=== PATIENT | female | born 2000 | race Caucasian/White ===

== ENCOUNTER 2021-12-15 21:29 | Emergency (ER) | payer OTHER, SELFPAY ==
[2021-12-15] VITALS (7 sets, daily range): BP systolic 102–118; BP diastolic 56–67; PULSE 56–71; RESP 16–22; TEMP 36.2; O2SAT 98–100; BMI 26.6
--- NOTE | 2021-12-15 22:05 | PC.NURSE ---
Upper right sided chest pain and also having pain under right ribs for the past 3-4 hours. Did not try any pain meds or interventions at home.
--- NOTE | 2021-12-15 22:08 | ED.CHESTPAIN ---
HPI - Chest Pain General Chief Complaint: Chest Pain Stated Complaint: rib pain, chest pain no known injury Time Seen by Provider: 12/15/21 21:45 Source: patient Mode of arrival: Ambulatory History of Present Illness HPI narrative: 21-year-old female, does not smoke cigarettes but does use a vape presents with significant other and a chief complaint of right upper quadrant pain with radiation to her right shoulder. She denies any injury nor obvious provocation or palliation. No worsening with food or drink. No history of gallbladder disease. No chest pain, cough or shortness of breath. No recent runny nose, sore throat or cough. She has had no nausea, vomiting or diarrhea Related Data Allergies Allergy/AdvReac Type Severity Reaction Status Date / Time Penicillins Allergy Hives Verified 12/15/21 21:43 Review of Systems Review of Systems Narrative: GENERAL: Denies chills, fatigue, malaise, fever, sweats. HEENT: Denies sinus pain, ear pain, sore throat, difficulty swallowing, dizziness. RESPIRATORY: Denies dyspnea, cough, wheezing, hemoptysis, sputum. CARDIOVASCULAR: Denies chest pain, palpitations, orthopnea, edema, GASTROINTESTINAL: See HPI : Denies dysuria, frequency, incontinence, hematuria, urinary retention. MUSCULOSKELETAL: denies weakness, joint pain, or bony pain SKIN: Denies rash, skin lesions, or other NEUROLOGIC: Denies weakness, headache, numbness, change in speech, confusion, seizures, incoordination. PSYCHIATRIC: No concerning psychosocial issues. 12 point review of systems is negative except for those stated above Patient History tobacco type: vaping Substance Use Type: does not use Exam Narrative Exam Narrative: GENERAL: [21] year old patient appears stated age. Well-developed patient, in mild distress. HEAD: Atraumatic. Normocephalic. EYES: Pupils equal round and reactive. Extraocular motions intact. No scleral icterus. No injection or drainage. ENT: Nose without bleeding, purulent drainage. Throat without erythema, tonsillar hypertrophy or exudate. Airway patent. NECK: Trachea midline. Non tender CARDIOVASCULAR: Regular rate and rhythm without murmurs, gallops, or rubs. RESPIRATORY: Clear to auscultation. Breath sounds equal bilaterally. No wheezes, rales, or rhonchi. GASTROINTESTINAL: Abdomen soft, tender to palpation in the right upper quadrant nondistended. EXTREMITIES: No edema or joint tenderness. BACK: Nontender without deformity or crepitance. No flank tenderness. NEURO: AOx3. SKIN: No rash or erythema of visible areas Initial Vital Signs Initial Vital Signs: Vital Signs Temperature 97.2 F L 12/15/21 21:39 Pulse Rate 61 12/15/21 21:39 Respiratory Rate 16 12/15/21 21:39 Blood Pressure 118/59 L 12/15/21 21:39 Pulse Oximetry 99 12/15/21 21:39 Course Orders Ordered: Discontinued Medications Hydrocodone Bitart/Acetaminophen (Hydrocodone/Acet 5/325 Prepack) 1 bottle MISC SEEINSTR ONE Stop: 12/15/21 23:50 Last Admin: 12/16/21 00:16 Dose: 1 bottle Documented by: ELANA Sodium Chloride (Normal Saline 0.9%) 1,000 mls @ 1,000 mls/hr IV BOLUS ONE Stop: 12/15/21 23:18 Last Infusion: 12/16/21 00:15 Dose: 0 mls/hr Documented by: Admin: 12/15/21 22:28 Dose: 1,000 mls/hr Documented by: ELIU Ondansetron HCl (Ondansetron 4 Mg Odt Prepack) 1 bottle MISC SEEINSTR ONE Stop: 12/15/21 23:50 Last Admin: 12/16/21 00:16 Dose: 1 bottle Documented by: ELANA Vital Signs Vital signs: Vital Signs - 8 hr 12/15/21 23:30 12/16/21 00:00 Pulse Rate 69 81 Respiratory Rate 20 27 H Blood Pressure 107/64 99/64 Pulse Oximetry 99 97 MDM - Chest Pain Lab Data Result diagrams: 12/15/21 22:20 12/15/21 22:20 Labs: Lab Results 12/15/21 12/15/21 Range/Units 22:20 22:20 WBC 8.2 (4.5-11.0) X10^3/uL RBC 4.43 (4.0-5.2) X10^6/uL Hgb 12.9 (12.0-16.0) g/dL Hct 39.7 (36-46) % MCV 89.6 (80-100) fL MCH 29.1 (26-34) PG MCHC 32.5 (30-36) % RDW 13.4 (11.6-14.8) % Plt Count 252 (150-400) X10^3/uL Neut % (Auto) 54.4 (50-75) % Lymph % (Auto) 35.9 (25-40) % [place] % (Auto) 8.1 (3-14) % Eos % (Auto) 0.8 L (2-4) % Baso % (Auto) 0.8 (0-2) % Neut # (Auto) 4400 (5497-8989) /uL Lymph # (Auto) 2900 (2387-9161) /uL [place] # (Auto) 700 (0-900) /uL Eos # (Auto) 100 (0-450) /uL Baso # (Auto) 100 (0-100) /uL Sodium 140 (137-145) mmol/L Potassium 3.4 (3.4-5.1) mmol/L Chloride 106 (98-107) mmol/L Carbon Dioxide 28 (22-32) mmol/L BUN 13 (7-17) mg/dL Creatinine 0.83 (0.52-1.04) mg/dL Estimated GFR > 60.0 (>60) mL/min BUN/Creatinine Ratio 15.7 (6-22) Glucose 93 (70-100) mg/dL Calcium 8.9 (8.4-10.2) mg/dL Total Bilirubin 0.5 (0.2-1.3) mg/dL AST 23 (14-36) IU/L ALT 20 (<35) IU/L Alkaline Phosphatase 36 L (38-126) U/L Total Protein 7.7 (6.3-8.2) g/dL Albumin 4.6 (3.5-5.0) g/dL Globulin 3.1 (1.7-4.1) g/dL Albumin/Globulin Ratio 1.5 (1.0-2.8) Lipase 63 (23-300) U/L Point of Care Testing Test Results Negative Urine Dip Bedside Urine Glucose Negative Bedside Urine Bilirubin - Negative Bedside Urine Ketone - Negative Urine Specific [place] 1.020 Bedside Urine Occult Blood - Negative Bedside Urine pH 6.0 Bedside Urine Protein - Negative Bedside Urine Urobilinogen - Negative Bedside Urine Nitrite - Negative Bedside Urine Leukocytes - Negative Esterase Imaging Data US - abdomen: Radiologist's Impression: [address] [address] Ultrasound Report Signed Patient: Hannah Francis MR#: [id number] : 2000 Acct:[id number] Age/Sex: 21 / F Date of Service: 12/15/21 Loc: ED Accession Number: [id number] ?? Procedure: US abdomen limited Ordering Provider: Nayan Cardoso D.O. PROCEDURE: US ABDOMEN LIMITED ? INDICATIONS:? RUQ pain, radiation to back, Fairbanks's ? TECHNIQUE:? Real-time focused scanning was performed of the abdomen, with image documentation.? ? COMPARISON:? None. ? FINDINGS: Liver is normal in size and echogenicity. No intrahepatic or extrahepatic biliary ductal dilatation.? The visualized portions of the pancreas are within normal limits. ? The gallbladder appears normal without gallstones or gallbladder wall thickening.? There is no pericholecystic fluid.? Legal Executive notes a positive sonographic [place]banks sign. ? IMPRESSION:? No acute abnormality identified in the right upper quadrant.? Normal gallbladder.? However, the press operator instant print shop notes a positive sonographic [place] sign.? Findings are of uncertain clinical significance and clinical correlation is recommended.? ? ? Dictated by: William Monroy M.D. on 12/16/2021 at 0:05 ? ? Approved by: William Monroy M.D. on 12/16/2021 at 0:07? MDM Narrative Medical decision making narrative: Multiple etiologies for patient's symptoms considered including: [Gallbladder disease given right upper quadrant pain with palpation in radiation of right shoulder but thought unlikely given lack of abnormal lab findings or ultrasound. Musculoskeletal considerations include spasm, inflammation but thought unlikely. Patient's symptoms improved over duration of stay with above-stated therapies. Findings and discharge diagnosis discussed with patient/family followed by verbalization of understanding Return precautions discussed with patient/family whom verbalize understanding. Discharge Plan Departure Patient Disposition: Home Clinical Impression: Right upper quadrant abdominal pain Instructions: DI for Abdominal Pain-Adult Activity Restrictions/Additional Instructions: *You have been diagnosed with [right upper quadrant pain, likely from gallbladder disease. As we discussed, your labs and ultrasound are very reassuring and there is no suggestion that you have a problem with your gallbladder that would need emergency surgery. *What to do: *Please continue to take your regular medications as directed. [ ] New medication prescriptions sent to your pharmacy: [ ] [ ] New medication written as a paper prescription [x ] No new medications given *Please follow up with your primary care provider or Dr. Clinton with [facility] in 2-3 days, call for an appointment. Let them know you were seen in the Emergency Department and that we ask that you be seen in follow up. We will electronically transmit a record of today's note if your PCP is in our system *Please avoid fatty foods. *If you do not have a primary care provider please contact the [facility] Resource line at [phone]. They will ask some questions about your medical history and help get you set up with a doctor in the community. *Return to Emergency Department if you should have any new, worsening or concerning symptoms, such as [fever greater than 101 F, shaking chills, worsening pain, persistent vomiting or other bothersome symptoms] Referrals: Pavan Clinton MD [Physician] - Stand Alone Forms: Work Release Note
--- NOTE | 2021-12-15 22:19 | DI.US.S_ITS ---
PROCEDURE: US ABDOMEN LIMITED INDICATIONS: RUQ pain, radiation to back, Fairbanks's TECHNIQUE: Real-time focused scanning was performed of the abdomen, with image documentation. COMPARISON: None. FINDINGS: Liver is normal in size and echogenicity. No intrahepatic or extrahepatic biliary ductal dilatation. The visualized portions of the pancreas are within normal limits. The gallbladder appears normal without gallstones or gallbladder wall thickening. There is no pericholecystic fluid. Merchandiser Retail Representative notes a positive sonographic Fairbanks sign. IMPRESSION: No acute abnormality identified in the right upper quadrant. Normal gallbladder. However, the coil former notes a positive sonographic Fairbanks sign. Findings are of uncertain clinical significance and clinical correlation is recommended. Dictated by: William Monroy M.D. on 12/16/2021 at 0:05 Approved by: William Monroy M.D. on 12/16/2021 at 0:07
[2021-12-15] MEDS: SODIUM CHLORIDE 0.9% 1,000 ML 1000 ML IV (22:28)
[2021-12-15 22:33] LABS: Add Manual Diff / Slide Review NO; Basophils Absolute Auto 100 /uL (0-100); Basophils Percent Auto 0.8 % (0-2); Eosinophils Absolute Auto 100 /uL (0-450); Eosinophils Percent Auto 0.8 % (2-4); Hematocrit 39.7 % (36-46); Hemoglobin 12.9 g/dL (12.0-16.0); Lymphocytes Absolute Auto 2900 /uL (1100-4500); Lymphocytes Percent Auto 35.9 % (25-40); Mean Corpuscular HGB Conc 32.5 % (30-36); Mean Corpuscular Hemoglobin 29.1 PG (26-34); Mean Corpuscular Volume 89.6 fL (80-100); Monocytes Absolute Auto 700 /uL (0-900); Monocytes Percent Auto 8.1 % (3-14); Neutrophils Absolute Auto 4400 /uL (1500-7000); Neutrophils Percent Auto 54.4 % (50-75); Platelet Count 252 X10^3/uL (150-400); Red Blood Cell Count 4.43 X10^6/uL (4.0-5.2); Red Cell Distribution Width 13.4 % (11.6-14.8); White Blood Cell Count 8.2 X10^3/uL (4.5-11.0)
[2021-12-15 22:39] LABS: Alanine Aminotransferase 20 IU/L (<35); Albumin 4.6 g/dL (3.5-5.0); Albumin Globulin Ratio 1.5 (1.0-2.8); Alkaline Phosphatase 36 U/L (38-126); Aspartate Aminotransferase 23 IU/L (14-36); BUN Creatinine Ratio 15.7 (6-22); Bilirubin Total 0.5 mg/dL (0.2-1.3); Blood Urea Nitrogen 13 mg/dL (7-17); Calcium 8.9 mg/dL (8.4-10.2); Carbon Dioxide 28 mmol/L (22-32); Chloride 106 mmol/L (98-107); Estimated Glomerular Filt Rate > 60.0 mL/min (>60); Globulin 3.1 g/dL (1.7-4.1); Glucose 93 mg/dL (70-100); HEMOLYSIS < 15 (0-50); Lipase 63 U/L (23-300); Potassium 3.4 mmol/L (3.4-5.1); Sodium 140 mmol/L (137-145); Total Protein 7.7 g/dL (6.3-8.2)
[2021-12-16] VITALS: BP 99/64; PULSE 81; RESP 27; O2SAT 97
[2021-12-16] MEDS: ONDANSETRON 4 MG ODT PREPACK 1 BOTTLE MISC (00:16)
[2021-12-16] MEDS: HYDROCODONE/ACET 5/325 PREPACK 1 BOTTLE MISC (00:16)
== END 2021-12-16 00:22 | disposition home or self-care (01) ==
PROVIDERS: Emergency Provider Emergency Medicine
DX: R10.11 Right upper quadrant pain (principal); F17.290 Nicotine dependence, other tobacco product, uncomplicated
CPT/HCPCS: 36415; 76705; 80053; 81003; 81025; 83690; 85025; 96360; 96361; 99284

== ENCOUNTER 2021-12-19 18:31 | Emergency (ER) | payer OTHER, SELFPAY ==
[2021-12-19 19:09] VITALS: BP 119/57; PULSE 74; RESP 16; TEMP 36.6; O2SAT 98; BMI 26.6
--- NOTE | 2021-12-19 20:48 | ED_ITS ---
HPI - Recheck/Abnormal Lab/Rx General Chief Complaint: Recheck/Abnormal Lab/Rx Stated Complaint: here on monday, increasing pain, rt shoulder Time Seen by Provider: 12/19/21 20:13 Source: patient Mode of arrival: Ambulatory Limitations: no limitations History of Present Illness HPI narrative: This is a 21-year-old female who returns for change in pain. Patient was seen on Monday she had right upper quadrant pain and some right upper chest pain. Patient states that it has now moved to her right thoracic just below her shoulder blade. The upper chest pain is gone and she occasionally has discomfort in her right upper quadrant. She denies fevers or chills. No cold, cough or congestion. No chest pain or shortness of breath otherwise. Does not pleuritic. Nothing seems to make it worse or better. No trauma or injuries. She has not had similar symptoms in the past. She has had some persistent nausea. No vomiting. She denies any lower abdominal pain. She denies diarrhea constipation. No black or bloody stools. No dysuria urgency or frequency. She is on her menses. Patient states she is otherwise healthy. No prior surgeries. She is allergic to penicillin. She vapes tobacco. She did have a glass of wine last night but no other illicit or recreational drugs. Related Data Previous Rx's Medication Instructions Recorded meloxicam 7.5 mg tablet 7.5 mg PO BID PRN #10 tab 12/19/21 Allergies Allergy/AdvReac Type Severity Reaction Status Date / Time Penicillins Allergy Hives Verified 12/15/21 21:43 Review of Systems Review of Systems ROS Unobtainable: All systems reviewed & are unremarkable except as noted in HPI and below Patient History tobacco type: vaping Substance Use Type: does not use Exam Narrative Exam Narrative: GENERAL: Alert and oriented x three, female in mild distress. HEENT: Head normocephalic, atraumatic, EOMI, pupils reactive, face symmetric, moist mucous membranes NECK: Supple, full range of motion CARDIOVASCULAR: Regular rate and rhythm without murmurs, rubs or gallops. Patient has no chest discomfort on palpation. RESPIRATORY: Breath sounds equal bilaterally, no wheezes rales or rhonchi. ABDOMEN: Soft, mild right upper quadrant tenderness. bowel sounds all 4 quadrants. No guarding or rebound, rigidity, no mass : No CVA tenderness BACK: No cervical, thoracic or lumbar vertebral point tenderness. Patient is nontender to palpation of the back. No warmth, erythema or skin changes noted. Has normal range of motion. Patient's gait is normal. EXTREMITIES: Normal range of motion, no clubbing or edema. 5/5 muscle strength. Normal sensation throughout. Neurovascularly intact NEUROLOGICAL: Cranial nerves II through XII grossly intact. Moving all extremities SKIN: Warm, dry, no petechiae, no rashes or lesions. Initial Vital Signs Initial Vital Signs: Vital Signs Temperature 98 F 12/19/21 19:09 Pulse Rate 74 12/19/21 19:09 Respiratory Rate 16 12/19/21 19:09 Blood Pressure 119/57 L 12/19/21 19:09 Pulse Oximetry 98 12/19/21 19:09 Scores HEART Score Heart Score history: Slightly Suspicious Heart Score EKG: Normal Heart Score Age: < 45 years old Heart Score risk factors: No known risk factors Heart Score troponin: < or = to normal limit Heart Score Total: 0 PERC Score Age greater than or equal to 50 years: No Heart rate greater than or equal to 100 bpm: No Room Air O2 Sat less than 95%: No Unilateral leg swelling: No Recent trauma or surgery: No Hemoptysis: No Prior PE or DVT: No Hormone Use: No Total PERC Score: 0 Course Orders Ordered: ED Orders 12/19/21 21:08 US abdomen limited Stat XR chest 1V Stat EKG-12 Lead Stat 12/19/21 21:23 Complete Blood Count AUTO DIFF Stat Comprehensive Metabolic Panel Stat Lipase Stat Troponin & CK Cardiac Panel Stat Discontinued Medications Aspirin (Aspirin 81 Mg Chew Tab) 324 mg PO NOW ONE Stop: 12/19/21 21:09 Last Admin: 12/19/21 21:26 Dose: Not Given Documented by: PAUL Ketorolac Tromethamine (Ketorolac 30 Mg/Ml Vial) 15 mg IV NOW ONE Stop: 12/19/21 21:11 Last Admin: 12/19/21 21:29 Dose: 15 mg Documented by: PAUL Reevaluation(s) Reevaluation #1: On recheck patient feels better after Toradol. She defers prescription for anything reviewed her labs and findings today. Discussed that maybe she has gallbladder to function but there are other potential causes as well that could be explored. Time: 22:38 Vital Signs Vital signs: Vital Signs - 8 hr 03/13/22 19:09 12/19/21 23:00 Temperature 98 F Pulse Rate 74 60 Respiratory Rate 16 16 Blood Pressure 119/57 L 107/56 L Pulse Oximetry 98 99 MDM - Recheck/Abnormal Lab/Rx Lab Data Result diagrams: 12/19/21 21:23 12/19/21 21:23 Labs: Lab Results 12/19/21 12/19/21 Range/Units 21:23 21:23 WBC 6.5 (4.5-11.0) X10^3/uL RBC 4.19 (4.0-5.2) X10^6/uL Hgb 12.5 (12.0-16.0) g/dL Hct 37.1 (36-46) % MCV 88.7 (80-100) fL MCH 29.9 (26-34) PG MCHC 33.7 (30-36) % RDW 13.4 (11.6-14.8) % Plt Count 228 (150-400) X10^3/uL Neut % (Auto) 51.5 (50-75) % Lymph % (Auto) 38.8 (25-40) % [place] % (Auto) 7.9 (3-14) % Eos % (Auto) 1.0 L (2-4) % Baso % (Auto) 0.8 (0-2) % Neut # (Auto) 3400 (5595-1067) /uL Lymph # (Auto) 2500 (3324-1065) /uL [place] # (Auto) 500 (0-900) /uL Eos # (Auto) 100 (0-450) /uL Baso # (Auto) 100 (0-100) /uL Sodium 140 (137-145) mmol/L Potassium 3.9 (3.4-5.1) mmol/L Chloride 110 H (98-107) mmol/L Carbon Dioxide 26 (22-32) mmol/L BUN 14 (7-17) mg/dL Creatinine 0.74 (0.52-1.04) mg/dL Estimated GFR > 60.0 (>60) mL/min BUN/Creatinine Ratio 18.9 (6-22) Glucose 95 (70-100) mg/dL Calcium 8.7 (8.4-10.2) mg/dL Total Bilirubin 0.4 (0.2-1.3) mg/dL AST 22 (14-36) IU/L ALT 15 (<35) IU/L Alkaline Phosphatase 40 (38-126) U/L Total Creatine Kinase 68 (30-135) U/L CK-MB (CK-2) TNP CK-MB (CK-2) Rel Index TNP Troponin I < 0.012 (0.01-0.034) ng/mL Total Protein 6.6 (6.3-8.2) g/dL Albumin 4.0 (3.5-5.0) g/dL Globulin 2.6 (1.7-4.1) g/dL Albumin/Globulin Ratio 1.5 (1.0-2.8) Lipase 57 (23-300) U/L Imaging Data Chest x-ray: Radiologist's Impression: Launch?[address] [address] XRay Report Signed Patient: Hannah Francis MR#: [id number] : 2000 Acct:[id number] Age/Sex: 21 / F Date of Service: 12/19/21 Loc: ED Accession Number: [id number] ?? Procedure: XR chest 1V Ordering Provider: Jeannette Figueroa D.O. PROCEDURE:? XR CHEST 1V ? INDICATIONS:? thoracic/RUQ pain ? TECHNIQUE:? One view of the chest was acquired.? ? COMPARISON:? None. ? FINDINGS:? ? Surgical changes and devices:? Bilateral nipple piercings.? ? Lungs and pleura:? Lungs are clear.? No pleural effusions or pneumothorax.? ? Mediastinum:? Mediastinal contours appear normal.? Heart size is normal.? ? Bones and chest wall:? No suspicious bony lesions.? Overlying soft tissues appear unremarkable.? ? IMPRESSION:? No acute cardiopulmonary disease process. ? ? Dictated by: Leilani Min MD, PhD on 12/19/2021 at 22:03 ? ? Approved by: Leilani Min MD, PhD on 12/19/2021 at 22:04?? US - abdomen: Radiologist's Impression: Hannah Francis??21??F??2000 ? Allergy/Adv: Penicillins Close Chest X-Ray (Signed) Leilani Min - 12/19/21 Abdomen Ultrasound (Signed) Leilani Min - 12/19/21 Abdomen Ultrasound (Signed) William Monroy - 12/15/21 Launch?Image [address] [address] Ultrasound Report Signed Patient: Hannah Francis MR#: [id number] : 2000 Acct:[id number] Age/Sex: 21 / F Date of Service: 12/19/21 Loc: ED Accession Number: [id number] ?? Procedure: US abdomen limited Ordering Provider: Jeannette Figueroa D.O. PROCEDURE: US ABDOMEN LIMITED ? INDICATIONS:? RUQ PAIN ? TECHNIQUE:? Real-time focused scanning was performed of the abdomen, with image documentation.? ? COMPARISON:? [facility], US ABDOMEN LIMITED, 12/15/2021, 22:43. ? FINDINGS:? ? Liver is normal in size and normal echotexture. ? Gallbladder is sonographically normal.? No gallstones.? No gallbladder wall thickening with gallbladder wall measuring 2.0 millimeters.? No pericholecystic fluid.? No sonographic Fairbanks sign. ? Biliary tree is nondilated.? Common bile duct measures 2.9 millimeters. ? Pancreas is sonographically normal. ? IMPRESSION:? No sonographic evidence of cholelithiasis or cholecystitis. If there is continued clinical concern for cholecystitis, a nuclear medicine HIDA scan should be considered for further evaluation. ? ? ? Dictated by: Leilani Min MD, PhD on 12/19/2021 at 21:53 ? ? Approved by: Leilani Min MD, PhD on 12/19/2021 at 21:54?? ECG Data Attestation: I personally reviewed and interpreted this ECG as follows: Prior ECG tracings: not available for review Interpretation: Sinus bradycardia, rate of 53, pr 158, qrs of 82 QTC of 401. No acute changes appreciated. No priors available. MDM Narrative Medical decision making narrative: This is a 21-year-old female who comes in with complaint of right thoracic pain. Patient was seen here on the night had suspected gallbladder with a positive sonographic Fairbanks sign but no other acute changes. Patient's chest x-ray, EKG and troponin do not show any acute changes. Labs and repeat ultrasound do not show any acute changes this evening. At this time but have patient follow-up with primary care. Discharge Plan Departure Patient Disposition: Home Clinical Impression: Back pain, thoracic Instructions: Thoracic Back Pain Activity Restrictions/Additional Instructions: Follow-up for recheck with primary care. If there is high suspicion for gallbladder disease a HIDA scan as an outpatient may be helpful. You can follow-up with primary care for general surgery to help get this ordered. Your labs, imaging and EKG today are reassuring. Prescription for meloxicam 1 tablet every 12 hours as needed for pain. Prescription sent to [facility] in [place]. Please return for fevers, worsening chest pain or shortness of breath, passing out, persistent vomiting, black or bloody stools other new or concerning symptoms. Prescriptions: New meloxicam 7.5 mg tablet 7.5 mg PO BID PRN (Reason: pain) Qty: 10 0RF Referrals: Miscellaneous,DoctorMD [Primary Care Provider] -
--- NOTE | 2021-12-19 21:08 | DI.RAD.S_ITS ---
PROCEDURE: XR CHEST 1V INDICATIONS: thoracic/RUQ pain TECHNIQUE: One view of the chest was acquired. COMPARISON: None. FINDINGS: Surgical changes and devices: Bilateral nipple piercings. Lungs and pleura: Lungs are clear. No pleural effusions or pneumothorax. Mediastinum: Mediastinal contours appear normal. Heart size is normal. Bones and chest wall: No suspicious bony lesions. Overlying soft tissues appear unremarkable. IMPRESSION: No acute cardiopulmonary disease process. Dictated by: Leilani Min MD, PhD on 12/19/2021 at 22:03 Approved by: Leilani Min MD, PhD on 12/19/2021 at 22:04
--- NOTE | 2021-12-19 21:08 | DI.US.S_ITS ---
PROCEDURE: US ABDOMEN LIMITED INDICATIONS: RUQ PAIN TECHNIQUE: Real-time focused scanning was performed of the abdomen, with image documentation. COMPARISON: [facility], [place], US ABDOMEN LIMITED, 12/15/2021, 22:43. FINDINGS: Liver is normal in size and normal echotexture. Gallbladder is sonographically normal. No gallstones. No gallbladder wall thickening with gallbladder wall measuring 2.0 millimeters. No pericholecystic fluid. No sonographic Fairbanks sign. Biliary tree is nondilated. Common bile duct measures 2.9 millimeters. Pancreas is sonographically normal. IMPRESSION: No sonographic evidence of cholelithiasis or cholecystitis. If there is continued clinical concern for cholecystitis, a nuclear medicine HIDA scan should be considered for further evaluation. Dictated by: Leilani Min MD, PhD on 12/19/2021 at 21:53 Approved by: Leilani Min MD, PhD on 12/19/2021 at 21:54
[2021-12-19] MEDS: KETOROLAC 30 MG/ML VIAL 15 MG IV (21:29)
[2021-12-19 21:38] LABS: Add Manual Diff / Slide Review NO; Basophils Absolute Auto 100 /uL (0-100); Basophils Percent Auto 0.8 % (0-2); Eosinophils Absolute Auto 100 /uL (0-450); Hematocrit 37.1 % (36-46); Hemoglobin 12.5 g/dL (12.0-16.0); Lymphocytes Absolute Auto 2500 /uL (1100-4500); Lymphocytes Percent Auto 38.8 % (25-40); Mean Corpuscular HGB Conc 33.7 % (30-36); Mean Corpuscular Hemoglobin 29.9 PG (26-34); Mean Corpuscular Volume 88.7 fL (80-100); Monocytes Absolute Auto 500 /uL (0-900); Monocytes Percent Auto 7.9 % (3-14); Neutrophils Absolute Auto 3400 /uL (1500-7000); Neutrophils Percent Auto 51.5 % (50-75); Platelet Count 228 X10^3/uL (150-400); Red Blood Cell Count 4.19 X10^6/uL (4.0-5.2); Red Cell Distribution Width 13.4 % (11.6-14.8); White Blood Cell Count 6.5 X10^3/uL (4.5-11.0)
[2021-12-19 22:08] LABS: Alanine Aminotransferase 15 IU/L (<35); Albumin Globulin Ratio 1.5 (1.0-2.8); Alkaline Phosphatase 40 U/L (38-126); Aspartate Aminotransferase 22 IU/L (14-36); BUN Creatinine Ratio 18.9 (6-22); Bilirubin Total 0.4 mg/dL (0.2-1.3); Blood Urea Nitrogen 14 mg/dL (7-17); Calcium 8.7 mg/dL (8.4-10.2); Carbon Dioxide 26 mmol/L (22-32); Chloride 110 mmol/L (98-107); Creatine Kinase 68 U/L (30-135); Estimated Glomerular Filt Rate > 60.0 mL/min (>60); Globulin 2.6 g/dL (1.7-4.1); Glucose 95 mg/dL (70-100); HEMOLYSIS < 15 (0-50); Lipase 57 U/L (23-300); Potassium 3.9 mmol/L (3.4-5.1); Sodium 140 mmol/L (137-145); Total Protein 6.6 g/dL (6.3-8.2)
[2021-12-19 22:19] LABS: Troponin I < 0.012 ng/mL (0.01-0.034)
[2021-12-19 23:00] VITALS: BP 107/56; PULSE 60; RESP 16; O2SAT 99
== END 2021-12-19 23:00 | disposition home or self-care (01) ==
PROVIDERS: Emergency Provider Emergency Medicine
DX: M54.6 Pain in thoracic spine (principal); R10.11 Right upper quadrant pain; R00.1 Bradycardia, unspecified
CPT/HCPCS: 36415; 71045; 76705; 80053; 82550; 83690; 84484; 85025; 93005; 93010; 96374; 99284; J1885

== ENCOUNTER 2023-07-04 12:42 | Emergency (ER) | payer OTHER, SELFPAY ==
[2023-07-04 12:49] VITALS: BP 123/77; PULSE 69; RESP 16; TEMP 36.6; O2SAT 100; BMI 32.3
--- NOTE | 2023-07-04 13:25 | CM.SWNOTE ---
Addendum entered by Farhat Gallagher 07/04/23 15:50: Pt screened and accepted for admission to [facility] for [facility] arrival. Accepting provider is Dr. Méndez. [facility] arranged transport via [facility] with ETA for pickup of 17:45. SW spoke with pt as pt is sleeping and he is provided with the above update. VR 15:51 Original Note: COMMUNICATIONS SENIOR ASSOCIATE Mental Health Evaluation COMMUNICATIONS SENIOR ASSOCIATE - Mail Processing Clerk Assessment COMMUNICATIONS SENIOR ASSOCIATE - Mail Processing Clerk Assessment Start: 07/04/23 13:04 Freq: Status: Active Protocol: Document 07/04/23 13:12 VR (Rec: 07/04/23 13:18 VR [id number]) COMMUNICATIONS SENIOR ASSOCIATE/Mail Processing Clerk Assessment Time Spent with Patient Start date 07/04/23 Visit Start Time 12:45 End date 07/04/23 Visit End Time 13:05 Total time Care Management spent on 20 patient visit-in minutes Mental Health Screening Include Onset, Duration, Intensity Presenting Problem Pt reports recent onset of SI thoughts. she was at work today and decided it was the day to talk about it. she spoke to staff at work at the [employer] and seen at clinic there and referred to the ED for referral to [facility]. Pt reports that she has been experiencing SI thoughts the past two weeks. She notes in the past week thoughts have been more frequent, intense, and vivid. she details see myself killing myself in numerous ways. she notes a week ago she put my head under the bath water to see what it would be like to drown myself. she also reports seeing myself cutting my wrists. Precipitating Event(s) Pt notes poor sleep the past 6 months and ongoing gastrointestinal issues for which she is seeing her PCP but has not had any diagnostic clarity. Patient Strengths Pt is actively seeking help and has supportive at bedside. Current Behavioral Health Provider(s) Pt has no hx of IP psychiatric admissions. Pt does not have a current MH Include Facility, Provider, Ph. # counselor. she is prescribed Prozac the past two years but does not believe it is working despite taking it as prescribed. Psych. Hx Mental Health and Chemical Pt notes hx of depression, Dependency anxiety, and PTSD. she did have a counselor when she was roughly 15yo. Family Hx of Behavioral Abuse Unknown Psychiatric Hospitalizations (date(s)/ None location) Psychosocial information & Support Pt reports of two Systems years is supportive. also her sister who lives with them. School/Work Pt is and lives with her and sister. she is originally from [place]. 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 She joined the [employer] when she was 19yo and has been stationed in [place] for four years. 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 Legal Concerns Legal Matters - Outstanding Issues Pt denies all hx of arrests or pending legal charges. No hx of assaultive bx. Mental Status Orientation (Person/Place/Time) A&Ox4 Stated Mood bad Affect (Congruent with Mood?) congruent Thought Content - Specify/Describe linear and organized. Obsessions, Delusions, Hallucinations Thought Processes (Xclqzqg-Ycdtlnyn-Pjaq logical. Lmsvstfc-Tqtqmfcx-Pabkcwehre- Ifnpqztyrijsjl-Cwfwuip-Pqtkcxkydcrk- Thought Blocking) Speech (Ozvlpf-Hauw-Xbxylua-Rapid-Soft- WNL Loud-Pressured) Motor (Stmefy-Vzkaawnrx-Wlws-Other) WNL Insight (Ilma-Qvbk-Jnjf/Limited) Good Judgement (Vvow-Dufp-Shag/Limited) Fair Impulse Control (Adequate-Impaired) Adequate Memory (Banmrgjrd-Laomzu-Kwvbuz, Good Impaired-Intact) Concentration (Intact-Impaired) Good Attention (Intact-Impaired) Good Behavior (Appropriate-Inappropriate) Calm and Cooperative. Risk Assessment Suicidal Ideation (Plan) Yes: see myself killing myself in numerous ways. Homicidal Ideation (Plan) No Intervention Intervention SW met with Pt at bedside with present per patients preference. Pt details SI in the past two weeks. She denies prior hx of SI. She reports concern she would harm herself at home. She does not identify particular triggers to the SI thoughts. She does identify stressors of poor sleep and ongoing stomach issues. Pt presents with ongoing active SI with various plans and intent. risk is escalated by intrusive thoughts and vivid visions of her harming herself. Pt is assessed to be at imminent risk of harm to herself and meets criteria for voluntary IP admission. she is requesting same. Goals of admission are safety, stabilization, and medication evaluation. Plan RA Plan Plan to refer patient for voluntary IP psychiatric treatment at [facility]. Farhat Gallagher, JASMIN, LPN RN
[2023-07-04 13:31] LABS: Add Manual Diff / Slide Review NO; Basophils Absolute Auto 100 /uL (0-100); Basophils Percent Auto 0.9 % (0-2); Eosinophils Absolute Auto 0 /uL (0-450); Eosinophils Percent Auto 0.4 % (2-4); Hematocrit 38.8 % (36-46); Hemoglobin 13.2 g/dL (12.0-16.0); Lymphocytes Absolute Auto 2000 /uL (1100-4500); Lymphocytes Percent Auto 20.6 % (25-40); Mean Corpuscular HGB Conc 33.9 % (30-36); Mean Corpuscular Hemoglobin 29.2 PG (26-34); Mean Corpuscular Volume 86.3 fL (80-100); Monocytes Absolute Auto 500 /uL (0-900); Monocytes Percent Auto 5.6 % (3-14); Neutrophils Absolute Auto 7100 /uL (1500-7000); Neutrophils Percent Auto 72.5 % (50-75); Platelet Count 293 X10^3/uL (150-400); Red Cell Distribution Width 13.5 % (11.6-14.8); White Blood Cell Count 9.8 X10^3/uL (4.5-11.0)
[2023-07-04 13:46] LABS: Acetaminophen < 10 ug/mL (10-30); Alanine Aminotransferase 60 IU/L (<35); Albumin 4.2 g/dL (3.5-5.0); Albumin Globulin Ratio 1.3 (1.0-2.8); Alkaline Phosphatase 76 U/L (38-126); Aspartate Aminotransferase 31 IU/L (14-36); BUN Creatinine Ratio 14.3 (6-22); Bilirubin Total 0.6 mg/dL (0.2-1.3); Blood Urea Nitrogen 10 mg/dL (7-17); Calcium 9.1 mg/dL (8.4-10.2); Carbon Dioxide 26 mmol/L (22-32); Chloride 103 mmol/L (98-107); Estimated Glomerular Filt Rate > 60 mL/min (>60); Ethanol (ETOH) < 10 mg/dL; Globulin 3.2 g/dL (1.7-4.1); Glucose 104 mg/dL (70-100); HEMOLYSIS < 15 (0-50); Potassium 3.8 mmol/L (3.4-5.1); Salicylate < 1.0 mg/dL (<20); Sodium 137 mmol/L (137-145); Total Protein 7.4 g/dL (6.3-8.2)
[2023-07-04 13:50] LABS: COVID19 -Nasal RAPID Negative (Negative)
--- NOTE | 2023-07-04 13:59 | ED_ITS ---
HPI - Psych General Chief Complaint: Psychiatric Symptoms Stated Complaint: sent by [facility] Time Seen by Provider: 07/04/23 13:08 Source: patient Mode of arrival: Ambulatory Limitations: no limitations History of Present Illness HPI Narrative: Patient is a 23-year-old female. She arrives in the emergency department by private vehicle. Her is with her. 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 She does have a history of PTSD which she states is related. She does see a mental health provider here at [facility]. She is on Prozac. She also sees a therapist virtually who is physically at [facility]. She states she is never had suicidal ideation in the past however 1 week ago she started have very intrusive thoughts of hurting herself. She talks about cutting her wrist. She also put her head under water to see what would be like an order to drown herself. She does not know a specific reason as to what triggered these events. [place] department. She is seeking admission to the hospital for her thoughts. Related Data Previous Rx's Medication Instructions Recorded meloxicam 7.5 mg tablet 7.5 mg PO BID PRN pain #10 tabs 12/19/21 Allergies Allergy/AdvReac Type Severity Reaction Status Date / Time Penicillins Allergy Hives Verified 01/06/22 11:16 Review of Systems Constitutional Constitutional: Reports system reviewed and no additional complaints, except as documented Cardiovascular Cardiovascular: Reports system reviewed and no additional complaints, except as documented Respiratory Respiratory: Reports system reviewed and no additional complaints, except as documented Gastrointestinal Gastrointestinal: Reports system reviewed and no additional complaints, except as documented Psychiatric Psychiatric: Reports system reviewed and no additional complaints, except as documented Patient History Family History Father No problems noted. Grandfather Stroke Heart disease Social History marital status: unmarried,single household members: significant other lives independently: Yes occupational status: employed Smoking Status: Current every day smoker alcohol intake: current Smoking Status: Current every day smoker tobacco type: vaping alcohol intake frequency: other Substance Use Type: does not use Exam Initial Vital Signs Initial Vital Signs: Vital Signs Temperature 98 F 09/26/23 12:49 Pulse Rate 69 07/04/23 12:49 Respiratory Rate 16 07/04/23 12:49 Blood Pressure 123/77 07/04/23 12:49 Pulse Oximetry 100 07/04/23 12:49 Oxygen Delivery Method Room Air 07/04/23 12:49 HENMT Head: normal to inspection and normocephalic Resp Effort & Inspection: normal respiratory effort Cardio Rate: regular rate Psych Appearance: grossly normal and well kempt Speech and Movement: speech and movement normal Affect: other (Flat affect) Thought Content: suicidality Course Orders Ordered: ED Orders 07/04/23 12:58 Consult to CUSTOMER SERVICE ATTENDANT - Line Out Worker Stat 07/04/23 13:09 Urine Culture Stat Urine Drug Screen, Rapid Stat Urine Microscopic Stat 07/04/23 13:11 COVID19 -Nasal RAPID Stat 07/04/23 13:22 Acetaminophen Stat Complete Blood Count AUTO DIFF Stat Comprehensive Metabolic Panel Stat Ethanol (ETOH) Stat Free T4, Direct Thyroxine Stat Salicylate Stat Thyroid Stimulating Hormone Stat Vital Signs Vital signs: Vital Signs - 8 hr 07/04/23 12:49 Temperature 98 F Pulse Rate 69 Respiratory Rate 16 Blood Pressure 123/77 Pulse Oximetry 100 Oxygen Delivery Method Room Air MDM - Psych Lab Data 07/04/23 13:22 07/04/23 13:22 Labs: Lab Results 07/04/23 07/04/23 07/04/23 Range/Units 13:09 13:09 13:11 WBC (4.5-11.0) X10^3/uL RBC (4.0-5.2) X10^6/uL Hgb (12.0-16.0) g/dL Hct (36-46) % MCV (80-100) fL MCH (26-34) PG MCHC (30-36) % RDW (11.6-14.8) % Plt Count (150-400) X10^3/uL Neut % (Auto) (50-75) % Lymph % (Auto) (25-40) % Gilmer % (Auto) (3-14) % Eos % (Auto) (2-4) % Baso % (Auto) (0-2) % Neut # (Auto) (0619-6206) /uL Lymph # (Auto) (8590-9880) /uL Gilmer # (Auto) (0-900) /uL Eos # (Auto) (0-450) /uL Baso # (Auto) (0-100) /uL Sodium (137-145) mmol/L Potassium (3.4-5.1) mmol/L Chloride (98-107) mmol/L Carbon Dioxide (22-32) mmol/L BUN (7-17) mg/dL Creatinine (0.52-1.04) mg/dL Estimated GFR (>60) mL/min BUN/Creatinine Ratio (6-22) Glucose (70-100) mg/dL Calcium (8.4-10.2) mg/dL Total Bilirubin (0.2-1.3) mg/dL AST (14-36) IU/L ALT (<35) IU/L Alkaline Phosphatase (38-126) U/L Total Protein (6.3-8.2) g/dL Albumin (3.5-5.0) g/dL Globulin (1.7-4.1) g/dL Albumin/Globulin Ratio (1.0-2.8) TSH (0.47-4.68) uIU/mL Free T4 (0.78-2.19) ng/dL Urine RBC None seen (0-5/HPF) Urine WBC 1-5/hpf (0-5/HPF) Ur Squamous Epith Cells 1-5 /hpf (0-5/HPF) Urine Bacteria Many (>30) H (None) Ur Culture Indicated? Specimen cultured Salicylates (<20) mg/dL U Opiates 300ng/mL cut Negative (Negative) Ur Oxycodone Screen Negative (Negative) Urine Methadone Screen Negative (Negative) Acetaminophen (10-30) ug/mL Ur Barbiturates Screen Negative (Negative) U Tricyclic Antidepress Negative (Negative) Ur Phencyclidine Scrn Negative (Negative) Ur Amphetamines Screen Negative (Negative) U Methamphetamines Scrn Negative (Negative) Ur MDMA Scrn (Ecstasy) Negative (Negative) U Benzodiazepines Scrn Negative (Negative) Urine Cocaine Screen Negative (Negative) U Marijuana (THC) Screen Negative (Negative) Ethyl Alcohol ( - 10) mg/dL SARS-CoV-2 (PCR) Negative (Negative) 07/04/23 07/04/23 07/04/23 Range/Units 13:22 13:22 13:22 WBC 9.8 (4.5-11.0) X10^3/uL RBC 4.50 (4.0-5.2) X10^6/uL Hgb 13.2 (12.0-16.0) g/dL Hct 38.8 (36-46) % MCV 86.3 (80-100) fL MCH 29.2 (26-34) PG MCHC 33.9 (30-36) % RDW 13.5 (11.6-14.8) % Plt Count 293 (150-400) X10^3/uL Neut % (Auto) 72.5 (50-75) % Lymph % (Auto) 20.6 L (25-40) % Gilmer % (Auto) 5.6 (3-14) % Eos % (Auto) 0.4 L (2-4) % Baso % (Auto) 0.9 (0-2) % Neut # (Auto) 7100 H (4843-7974) /uL Lymph # (Auto) 2000 (4855-3597) /uL Gilmer # (Auto) 500 (0-900) /uL Eos # (Auto) 0 (0-450) /uL Baso # (Auto) 100 (0-100) /uL Sodium 137 (137-145) mmol/L Potassium 3.8 (3.4-5.1) mmol/L Chloride 103 (98-107) mmol/L Carbon Dioxide 26 (22-32) mmol/L BUN 10 (7-17) mg/dL Creatinine 0.70 (0.52-1.04) mg/dL Estimated GFR > 60 (>60) mL/min BUN/Creatinine Ratio 14.3 (6-22) Glucose 104 H (70-100) mg/dL Calcium 9.1 (8.4-10.2) mg/dL Total Bilirubin 0.6 (0.2-1.3) mg/dL AST 31 (14-36) IU/L ALT 60 H (<35) IU/L Alkaline Phosphatase 76 (38-126) U/L Total Protein 7.4 (6.3-8.2) g/dL Albumin 4.2 (3.5-5.0) g/dL Globulin 3.2 (1.7-4.1) g/dL Albumin/Globulin Ratio 1.3 (1.0-2.8) TSH 1.26 (0.47-4.68) uIU/mL Free T4 0.91 (0.78-2.19) ng/dL Urine RBC (0-5/HPF) Urine WBC (0-5/HPF) Ur Squamous Epith Cells (0-5/HPF) Urine Bacteria (None) Ur Culture Indicated? Salicylates < 1.0 (<20) mg/dL U Opiates 300ng/mL cut (Negative) Ur Oxycodone Screen (Negative) Urine Methadone Screen (Negative) Acetaminophen < 10 (10-30) ug/mL Ur Barbiturates Screen (Negative) U Tricyclic Antidepress (Negative) Ur Phencyclidine Scrn (Negative) Ur Amphetamines Screen (Negative) U Methamphetamines Scrn (Negative) Ur MDMA Scrn (Ecstasy) (Negative) U Benzodiazepines Scrn (Negative) Urine Cocaine Screen (Negative) U Marijuana (THC) Screen (Negative) Ethyl Alcohol < 10 ( - 10) mg/dL SARS-CoV-2 (PCR) (Negative) Point of Care Testing Test Results Negative Urine Dip Bedside Urine Glucose Negative Bedside Urine Bilirubin - Negative Bedside Urine Ketone - Negative Urine Specific [place] 1.020 Bedside Urine Occult Blood - Negative Bedside Urine pH 6.0 Bedside Urine Protein - Negative Bedside Urine Urobilinogen - Negative Bedside Urine Nitrite - Negative Bedside Urine Leukocytes + 70 Esterase MDM Narrative Medical decision making narrative: Patient is medically cleared. She is voluntary. Does expressed suicidal ideation. No signs of any toxidrome or toxic ingestions. Has been seen by social work. Patient has been accepted at [facility] by Dr. Méndez. Patient is stable for transport. Discharge Plan Departure Patient Disposition: Xfer Psychiatric Hosp Clinical Impression: Suicidal ideation, Post traumatic stress disorder (PTSD) Prescriptions: No Action meloxicam 7.5 mg tablet 7.5 mg PO BID PRN (Reason: pain) Qty: 10 0RF Referrals: Zechariah Hernandez PA-C [Primary Care Provider] -
[2023-07-04 14:09] LABS: Free T4, Direct Thyroxine 0.91 ng/dL (0.78-2.19)
[2023-07-04 14:13] LABS: Bacteria Urine Many (>30); Culture Indicated Urine Specimen Cultured; RBC Urine None Seen (0-5/HPF); Squamous Epithelial Cell Urine 1-5 /HPF (0-5/HPF); WBC Urine 1-5/HPF (0-5/HPF)
[2023-07-04 14:22] LABS: UR Morphine/Opiate cutoff 300 Negative (Negative); Ur Creatinine Normal (Normal); Ur Specific Gravity Normal (Normal); Urine Amphetamines Negative (Negative); Urine Barbiturates Negative (Negative); Urine Benzodiazepines Negative (Negative); Urine Cocaine Negative (Negative); Urine MDMA Negative (Negative); Urine Methadone Negative (Negative); Urine Methamphetamines Negative (Negative); Urine Oxycodone Negative (Negative); Urine Phencyclidine Negative (Negative); Urine Tetrahydrocannabinol Negative (Negative); Urine Tricyclic Antidepressant Negative (Negative); Urine pH Normal (Normal)
[2023-07-04 14:23] LABS: Thyroid Stimulating Hormone 1.26 uIU/mL (0.47-4.68)
--- NOTE | 2023-07-04 15:41 | PC.NURSE ---
Gemma from [facility]; CHE HERNANDEZ at [facility] @ [phone] with arrival time to [facility] @2014.
--- NOTE | 2023-07-04 17:00 | PC.NURSE ---
Pt sitting up in bed with meal tray on her lap, at bedside.
--- NOTE | 2023-07-04 17:17 | PC.NURSE ---
Pt did not seem to be eating from her dinner tray. I offered other dietary supplies from the ER. Patient agreed and is eating egg salad sandwich, pudding, chocolate milk, crackers and cheese.
[2023-07-04 17:35] VITALS: BP 112/68; PULSE 68; RESP 14; O2SAT 100
--- NOTE | 2023-07-04 18:15 | PC.NURSE ---
[facility] transport is here, patient in gurney and calm and cooperative. 2x bags of patient's personal items sent with transport team.
== END 2023-07-04 18:00 ==
PROVIDERS: Emergency Provider Emergency Medicine; PCP Physician Assistant
DX: R45.851 Suicidal ideations (principal); F43.10 Post-traumatic stress disorder, unspecified; Z20.822 Contact with and (suspected) exposure to COVID-19
CPT/HCPCS: 36415; 80053; 80305; 80320; 80329; 81003; 81015; 81025; 84439; 84443; 85025; 87086; 87635; 99284; C9803; G0480

== ENCOUNTER 2023-08-12 21:37 | Emergency (ER) | payer OTHER, SELFPAY ==
[2023-08-12] VITALS (7 sets, daily range): BP systolic 109–117; BP diastolic 59–70; PULSE 62–88; RESP 16; TEMP 37.1; O2SAT 95–99; BMI 36.3
--- NOTE | 2023-08-12 21:51 | ED.GENADULT ---
HPI - General Adult General Chief complaint: Dizziness Stated complaint: vertigo x12 hours nausea heart palpitations Time Seen by Provider: 08/12/23 21:45 Source: patient Mode of arrival: Ambulatory History of Present Illness HPI narrative: Patient is a 23-year-old female. Has had history of vertigo in the past she is scheduled to see audiology for further evaluation. Yesterday she was seen at a walk-in clinic. Was diagnosed with a sinus infection. Was put on steroids. Was also given antibiotics. She denies any fevers. States she states that earlier today she started to have vertigo. Consistent with her prior history of this however it has been more consistent throughout the day which is a little unusual. She is also having palpitations. Also having some nausea. Related Data Previous Rx's Medication Instructions Recorded meloxicam 7.5 mg tablet 7.5 mg PO BID PRN pain #10 tabs 12/19/21 meclizine 25 mg tablet 25 mg PO TID PRN dizziness #30 tabs 08/12/23 Allergies Allergy/AdvReac Type Severity Reaction Status Date / Time Penicillins Allergy Hives Verified 01/06/22 11:16 Review of Systems Constitutional Constitutional: Reports system reviewed and no additional complaints, except as documented ENT Ears, Nose, Mouth, and Throat: Reports system reviewed and no additional complaints, except as documented Cardiovascular Cardiovascular: Reports system reviewed and no additional complaints, except as documented Respiratory Respiratory: Reports system reviewed and no additional complaints, except as documented Gastrointestinal Gastrointestinal: Reports system reviewed and no additional complaints, except as documented Neurologic Neurologic: Reports system reviewed and no additional complaints, except as documented Patient History Family History Father No problems noted. Grandfather Stroke Heart disease Social History (Reviewed 08/13/23 @ 01:05 PDT by Boo Obrien DO) marital status: unmarried,single household members: significant other lives independently: Yes occupational status: employed Smoking Status: Current every day smoker alcohol intake: current Smoking Status: Current every day smoker tobacco type: vaping alcohol intake frequency: other Substance Use Type: does not use Exam Initial Vital Signs Initial Vital Signs: Vital Signs Temperature 98.7 F 08/12/23 21:40 Pulse Rate 78 08/12/23 21:40 Respiratory Rate 16 08/12/23 21:40 Blood Pressure 117/70 08/12/23 21:40 Pulse Oximetry 99 08/12/23 21:40 Oxygen Delivery Method Room Air 08/12/23 21:40 Const General: cooperative, comfortable and No ill appearing HENMT Head: normal to inspection and normocephalic Resp Effort & Inspection: normal respiratory effort Auscultation: clear to auscultation bilaterally Cardio Rate: regular rate GI Inspection: normal to inspection Skin General: no rashes or lesions noted Neuro General: patient alert, patient awake and moves all extremities Extrem General: capillary refill normal Course Orders Ordered: ED Orders 08/12/23 21:51 EKG-12 Lead Stat 08/12/23 21:55 Basic Metabolic Panel Stat Complete Blood Count AUTO DIFF Stat Discontinued Medications Sodium Chloride (Normal Saline 0.9%) 1,000 mls @ 1,000 mls/hr IV BOLUS ONE Stop: 08/12/23 22:50 Last Infusion: 08/12/23 23:07 Dose: Infused Documented By: Admin: 08/12/23 22:05 Dose: 1,000 mls/hr Documented By: COURTNEY Meclizine HCl (Meclizine Hcl 12.5 Mg Tablet) 25 mg PO NOW ONE Stop: 08/12/23 21:52 Last Admin: 08/12/23 22:05 Dose: 25 mg Documented By: COURTNEY Vital Signs Vital signs: Vital Signs - 8 hr 08/12/23 21:40 08/12/23 21:43 08/12/23 21:44 Temperature 98.7 F Pulse Rate 78 88 82 Respiratory Rate 16 Blood Pressure 117/70 Pulse Oximetry 99 95 97 Oxygen Delivery Method Room Air 08/12/23 21:44 08/12/23 22:00 08/12/23 22:01 Temperature Pulse Rate 69 67 Respiratory Rate Blood Pressure 117/70 Pulse Oximetry 96 97 Oxygen Delivery Method 08/12/23 22:01 08/12/23 22:30 08/12/23 22:30 Temperature Pulse Rate 64 Respiratory Rate Blood Pressure 109/59 L 116/62 Pulse Oximetry 99 Oxygen Delivery Method 08/12/23 23:00 08/12/23 23:00 Temperature Pulse Rate 62 Respiratory Rate Blood Pressure 117/63 Pulse Oximetry 98 Oxygen Delivery Method Medical Decision Making Lab Data Lab results reviewed: Yes I reviewed the patient's lab results. 08/12/23 21:55 08/12/23 21:55 Labs: Lab Results 08/12/23 Range/Units 21:55 WBC 18.3 H (4.5-11.0) X10^3/uL RBC 4.28 (4.0-5.2) X10^6/uL Hgb 12.6 (12.0-16.0) g/dL Hct 36.8 (36-46) % MCV 86.1 (80-100) fL MCH 29.4 (26-34) PG MCHC 34.1 (30-36) % RDW 13.8 (11.6-14.8) % Plt Count 331 (150-400) X10^3/uL Neut % (Auto) 89.1 H (50-75) % Lymph % (Auto) 6.8 L (25-40) % [place] % (Auto) 4.0 (3-14) % Eos % (Auto) 0.0 L (2-4) % Baso % (Auto) 0.1 (0-2) % Neut # (Auto) 97653 H (5232-4069) /uL Lymph # (Auto) 1200 (5293-0681) /uL [place] # (Auto) 700 (0-900) /uL Eos # (Auto) 0 (0-450) /uL Baso # (Auto) 0 (0-100) /uL Sodium 138 (137-145) mmol/L Potassium 3.5 (3.4-5.1) mmol/L Chloride 106 (98-107) mmol/L Carbon Dioxide 21 L (22-32) mmol/L BUN 9 (7-17) mg/dL Creatinine 0.61 (0.52-1.04) mg/dL Estimated GFR > 60 (>60) mL/min BUN/Creatinine Ratio 14.8 (6-22) Glucose 132 H (70-100) mg/dL Calcium 8.9 (8.4-10.2) mg/dL ECG Data Attestation: I personally reviewed and interpreted this ECG as follows: Interpretation: Sinus rhythm Ventricular rate is 78 Normal axis Normal QRS Normal QTC No ST T wave changes MDM Narrative Medical decision making narrative: Given the patient's history of a very high suspicion that this is peripheral vertigo. She does have leukocytosis but she is been on steroids in his also been diagnosed with a sinus infection. Her EKG is unremarkable. She was having the palpitations at the time of my exam and at the time of the EKG. We discussed that potentially the steroids could be contributing to her presenting symptoms today. She is not having any respiratory distress. I advised she is stopped taking the steroids. She would minimal improvement with the meclizine. She has follow-up scheduled for further evaluation of this. Will discharge patient home. No indication for radiologic studies. She was given strict return precautions. She expressed understanding and agreement. Discharge Plan Departure Patient Disposition: Home Clinical Impression: Vertigo Instructions: DI for Vertigo Activity Restrictions/Additional Instructions: I do recommend that you contact your medical department on Monday for follow-up. Like we discussed I would recommend that you stop taking the steroids that you were prescribed yesterday as this maybe contributing to your presenting symptoms today. Keep all of your scheduled medical appointments. Return to the emergency department for new symptoms. Prescriptions: New meclizine 25 mg tablet 25 mg PO TID PRN (Reason: dizziness) Qty: 30 0RF No Action meloxicam 7.5 mg tablet 7.5 mg PO BID PRN (Reason: pain) Qty: 10 0RF Referrals: Zechariah Hernandez PA-C [Primary Care Provider] - Stand Alone Forms: Patient Portal/API
[2023-08-12 22:04] LABS: Add Manual Diff / Slide Review NO; Basophils Absolute Auto 0 /uL (0-100); Basophils Percent Auto 0.1 % (0-2); Eosinophils Absolute Auto 0 /uL (0-450); Hematocrit 36.8 % (36-46); Hemoglobin 12.6 g/dL (12.0-16.0); Lymphocytes Absolute Auto 1200 /uL (1100-4500); Lymphocytes Percent Auto 6.8 % (25-40); Mean Corpuscular HGB Conc 34.1 % (30-36); Mean Corpuscular Hemoglobin 29.4 PG (26-34); Mean Corpuscular Volume 86.1 fL (80-100); Monocytes Absolute Auto 700 /uL (0-900); Neutrophils Absolute Auto 16300 /uL (1500-7000); Neutrophils Percent Auto 89.1 % (50-75); Platelet Count 331 X10^3/uL (150-400); Red Blood Cell Count 4.28 X10^6/uL (4.0-5.2); Red Cell Distribution Width 13.8 % (11.6-14.8); White Blood Cell Count 18.3 X10^3/uL (4.5-11.0)
[2023-08-12] MEDS: MECLIZINE HCL 12.5 MG TABLET 25 MG PO (22:05)
[2023-08-12] MEDS: SODIUM CHLORIDE 0.9% 1,000 ML 1000 ML IV (22:05)
[2023-08-12 22:12] LABS: BUN Creatinine Ratio 14.8 (6-22); Blood Urea Nitrogen 9 mg/dL (7-17); Calcium 8.9 mg/dL (8.4-10.2); Carbon Dioxide 21 mmol/L (22-32); Chloride 106 mmol/L (98-107); Estimated Glomerular Filt Rate > 60 mL/min (>60); Glucose 132 mg/dL (70-100); HEMOLYSIS < 15 (0-50); Potassium 3.5 mmol/L (3.4-5.1); Sodium 138 mmol/L (137-145)
== END 2023-08-12 23:12 | disposition home or self-care (01) ==
PROVIDERS: Emergency Provider Emergency Medicine; PCP Physician Assistant
DX: R42 Dizziness and giddiness (principal); R11.0 Nausea; R00.2 Palpitations
CPT/HCPCS: 36415; 80048; 85025; 93005; 96360; 99284

== ENCOUNTER 2023-09-04 13:30 | Outpatient (RCR) | payer OTHER, SELFPAY ==
--- NOTE | 2023-06-22 16:00 | OT.OP.EVAL ---
Visit Care Team Role Provider Type Zechariah Hernandez PA-C Attending Provider Non-Staff Primary Care Provider Referring Provider Specialty: Medical Address: [address] [place] [address], [address] Phone: Email: Occupational Therapy Initial Evaluation OT Outpatient Adult Evaluation Start: 06/23/23 08:59 Freq: Status: Active Protocol: Document 06/22/23 16:00 AMS (Rec: 06/23/23 09:35 AMS [id number]) General Information - Adult Visit Number EVAL Plan of Care Dates 06/22/23 - 08/17/23 Insurance Information Prime; 12 visits auth Visit Start Time 12:15 Visit Stop Time 12:55 Total Visit Minutes 40 Treatment Setting Outpatient Care Note Type Initial Evaluation Identification Confirmed Yes Identification Confirmed By Self Goals Short Term Goals 1. Hannah will present with increased ability to actively incorporate L distal UE in day -to-day tasks d/t increased strength of L wrist: 1a. 5/5 MMT L wrist ext. 1b. 5/5 MMT L wrist flex. 1c. 5/[address] 1d. 5/5 MMT L wrist UD. 2. Hannah will present with increased ability to actively incorporate L distal UE in day -to-day tasks d/t increased left wrist AROM 2a. 0-60 degrees active L wrist flex. 2b. 0-70 degrees active L wrist ext. [facility] Goals 1. Hannah will be modified independent with execution of distal L UE home exercise program utilizing provided written and visual instructions from therapist. 2. Hannah will present with increased ability to participate in meaningful activities in a variety of environments as evidenced by the followina. Hannah will indicate 2 or less out of 10 relative to L wrist on Pain Assessment Grid. 2b. Hannah will obtain a QuickDASH UE Outcome Measure Score of 25.00 or less. 2c. Hannah will obtain a QuickDASH UE Work Module Score of 25.00 or less. Assessment/Plan Treatment Assessment Hannah is a 23 year-old right hand dominant female referred to outpatient by PCP secondary to left wrist pain/discomfort . PMH significant for back pain, headaches, jaw pain, depression, and impaired vision (wears glasses). 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 She continues to work full-time. She indicated 7 out of 10 on pain scale relative to volar L wrist and 8-9 out of 10 on pain scale relative to dorsal L wrist/ distal -> 2-5 MCPJs; see EMR for scanned Pain Assessment Grid. Hannah reported that pain has presented on and off for the last 2 years; however, pain/discomfort has been more severe in the last 6 months w / reported pain/discomfort pushing off of surfaces/ maintaining grasp for any extended period of time. Intermittent icing of L wrist for pain management; (-) currently using L wrist brace w/ reported increased reliance on R UE. Denial of h/o treatment for L wrist. QuickDASH UE Outcome Measure Score = 54.55; QuickDASH UE Work Module Score = 62.50; Hannah denied playing a sport or an instrument. She reports that she does do weight lifting (but has stopped since having injury). Denial of numbness and/or tingling. 0-60 degrees active R wrist flex vs 0-50 degrees active L wrist flex; 0-75 degrees active R wrist ext vs 0-62 degrees active L wrist ext; 0-15 degrees active R wrist RD vs 0 -15 degrees active L wrist RD; 0-40 degrees active R wrist UD vs 0-35 degrees active L wrist UD. 5/5 MMT R wrist flex vs 3+/5 MMT L wrist flex; 5/5 MMT R wrist ext vs 4/5 MMT L wrist ext; 5/[address] vs 3+/[address]; 5/5 MMT R wrist UD vs 3+/5 MMT L wrist UD. R compressor station engineer w/ elbow 90 degrees flexion dynamometer II = 36.0# of force vs L compressor station engineer w/ elbow 90 degrees flexion dynamometer II 28.0# of force; R compressor station engineer w/ elbow ext dynamometer II = 43.0# of force vs L compressor station engineer w/ elbow ext dynamometer II = 23.0# of force. R lateral pinch 12.0# of force vs 7.0# of force L lateral pinch; 11.0# of force R tip pinch vs 5.0# of force L tip pinch; 17.0# of force R 3 -jaw pinch vs 8.0# of force L 3-jaw pinch. Hannah would likely benefit from outpatient OT to address L wrist pain/ discomfort, distal L UE weakness, establishment of HEP , and to support her ability to participate in meaningful activities with active incorporation of non-dominant hand. Home Exercise Program 06/22/23 = Instructed in L <-> R weight shift standing at wall w/ hands at sh height; 3 x 10 repetitions daily as tolerated. Rec wall push-ups w / hands positioned at sh height; 1 set of 10 repetitions daily as tolerated . Instructed in passive wrist ext and wrist flex utilizing contralateral hand w/ rec hold of 20 to 30 seconds 1 to 2 times daily and/or as needed. Discussed use of rigid volar based L wrist splint as needed ; rec w/ lifting. Trialed kinesiotape L wrist to support wrist stabilization as an alternative. Length of treatment (weeks) 8 Plan of Care Start Date 06/22/23 Plan of Care End Date 08/17/23 Treatment Frequency Once a Week Therapeutic Contents Active Range of Motion, Adaptive Equipment Education, Client Education,Functional Activities,Home Exercise Program,Joint Protection, Manual Therapy,Education, Neurodevelopment Treatment, Neuromuscular Re-Education, Self-Care,Stretching/ Flexibility Activities, Therapeutic Activities, Therapeutic Exercises, Modalities Modalities As Needed,As Prescribed Additional Types of Modalities Heat/Ice/Contrast Baths/ Paraffin/Ultrasound
--- NOTE | 2023-07-07 09:04 | OT.OP.TRT ---
Visit Care Team Role Provider Type Zechariah Hernandez PA-C Attending Provider Non-Staff Primary Care Provider Referring Provider Specialty: Medical Address: [address] [place] [address], [address] Phone: Email: Occupational Therapy Treatment Note OT Outpatient Treatment Note - Adult Start: 06/23/23 08:59 Freq: Status: Active Protocol: Document 07/07/23 08:57 AMS (Rec: 07/07/23 09:04 [facility] [id number]) OT Outpatient Adult Treatment Note Visit Information Visit Number 10/20 Plan of Care Dates 06/22/23 - 08/17/23 Insurance Information Prime; 12 visits auth Setting Treatment Setting Outpatient Care Visit Type Note Type Treatment Note General Information General Information Hannah is a 23 year-old right hand dominant female referred to outpatient by PCP secondary to left wrist pain/discomfort . PMH significant for back pain, headaches, jaw pain, depression, and impaired vision (wears glasses). 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 She continues to work full-time. - Subjective Identification Type Name Observations c/o pain/discomfort of dorsal L wrist. - Objective Objective Measurements Please refer to below for progress towards meeting established OT goals: Short Term Goals 1. Hannah will present with increased ability to actively incorporate L distal UE in day -to-day tasks d/t increased strength of L wrist: 1a. 5/5 MMT L wrist ext. 1b. 5/5 MMT L wrist flex. 1c. 5/[address] 1d. 5/5 MMT L wrist UD. 2. Hannah will present with increased ability to actively incorporate L distal UE in day -to-day tasks d/t increased left wrist AROM 2a. 0-60 degrees active L wrist flex. 2b. 0-70 degrees active L wrist ext. Fdc Goals 1. Hannah will be modified independent with execution of distal L UE home exercise program utilizing provided written and visual instructions from therapist. 2. Hannah will present with increased ability to participate in meaningful activities in a variety of environments as evidenced by the followina. Hannah will indicate 2 or less out of 10 relative to L wrist on Pain Assessment Grid. 2b. Hannah will obtain a QuickDASH UE Outcome Measure Score of 25.00 or less. 2c. Hannah will obtain a QuickDASH UE Work Module Score of 25.00 or less. - Treatment 1 Descriptor Ultrasound 20% duty cycle. 2.0 w/cm2 dorsal L wrist to address swelling/inflammation. Skin intact pre- and post- treatment. No c/o pain/ discomfort w/ treatment. - Assessment Assessment of Improvement Upgraded HEP; provided TB#3 for home utilization w/ wrist strengthening exercises. Overall, good session. Rec introducing weighted spherical ball exercise vs dowel exercise and incorporating dynamic wrist stabilization exercises. Hannah would likely benefit from outpatient OT to address L wrist pain/discomfort, distal L UE weakness, establishment of HEP, and to support her ability to participate in meaningful activities with active incorporation of non-dominant hand. Home Exercise Program 07/07/23 = Instructed in wrist ext/flex elbow 90 degrees flex w/ forearm supported w/ TB #[address]/UD on TT w/ elbow ext and forearm pronation w/ TB #3; rec 3 x 10 every other day or 3 x per week. Instructed in passive wrist RD/UD w/ elbow ext and forearm pronation w/ use of TT w/ hold of 20-30 sec. Rec 1-2 times daily/as needed w/ passive wrist flex/ext. 06/22/23 = Instructed in L <-> R weight shift standing at wall w/ hands at sh height; 3 x 10 repetitions daily as tolerated. Rec wall push-ups w / hands positioned at sh height; 1 set of 10 repetitions daily as tolerated . Instructed in passive wrist ext and wrist flex utilizing contralateral hand w/ rec hold of 20 to 30 seconds 1 to 2 times daily and/or as needed. Discussed use of rigid volar based L wrist splint as needed ; rec w/ lifting. Trialed kinesiotape L wrist to support wrist stabilization as an alternative. - Plan Therapy Recommendations Continue with Current Program, Advance per Rehabilitation Protocol
--- NOTE | 2023-07-17 10:35 | OT.OP.TRT ---
Visit Care Team Role Provider Type Zechariah Hernandez PA-C Attending Provider Non-Staff Primary Care Provider Referring Provider Specialty: Medical Address: [address] [place] [address], [id number] Phone: Email: Occupational Therapy Treatment Note OT Outpatient Treatment Note - Adult Start: 06/23/23 08:59 Freq: Status: Active Protocol: Document 07/17/23 10:29 AMS (Rec: 07/17/23 10:35 AMS [id number]) OT Outpatient Adult Treatment Note Session Time Visit Start Time 09:45 Visit Stop Time 10:25 Total Visit Minutes 40 Visit Information Visit Number [id number] Plan of Care Dates 06/22/23 - 08/17/23 Insurance Information Prime; 12 visits auth Setting Treatment Setting Outpatient Care Visit Type Note Type Treatment Note General Information General Information Hannah is a 23 year-old right hand dominant female referred to outpatient by PCP secondary to left wrist pain/discomfort . PMH significant for back pain, headaches, jaw pain, depression, and impaired vision (wears glasses). 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 She continues to work full-time. - Subjective Identification Type Name Observations Report of falling onto the L wrist this past weekend. Denied aggravation of symptoms of L wrist w/ fishing. - Objective Objective Measurements Please refer to below for progress towards meeting established OT goals: Short Term Goals 1. Hannah will present with increased ability to actively incorporate L distal UE in day -to-day tasks d/t increased strength of L wrist: 1a. 5/5 MMT L wrist ext. 1b. 5/5 MMT L wrist flex. 1c. 5/[address] 1d. 5/5 MMT L wrist UD. 2. Hannah will present with increased ability to actively incorporate L distal UE in day -to-day tasks d/t increased left wrist AROM 2a. 0-60 degrees active L wrist flex. 2b. 0-70 degrees active L wrist ext. Group Home Goals 1. Hannah will be modified independent with execution of distal L UE home exercise program utilizing provided written and visual instructions from therapist. 2. Hannah will present with increased ability to participate in meaningful activities in a variety of environments as evidenced by the followina. Hannah will indicate 2 or less out of 10 relative to L wrist on Pain Assessment Grid. 2b. Hannah will obtain a QuickDASH UE Outcome Measure Score of 25.00 or less. 2c. Hannah will obtain a QuickDASH UE Work Module Score of 25.00 or less. - Treatment 1 Descriptor Ultrasound 20% duty cycle. 2.0 w/cm2 dorsal L wrist to address swelling/inflammation. x 10 minutes. Skin intact pre - and post- treatment. No c/o pain/discomfort w/ treatment. Exercises 3 Descriptor ROM/Glides. Passive wrist UD/RD/flex/ext. Hold for 20 sec each stretch. Tendon glides. x 5 cycles. 2 Descriptor Wrist strengthening/Wrist stabilization. Weighted spherical ball. 3.3# weighted spherical ball. Wrist arc (RD <-> UD) w/ wrist ext w/ use of TT. Elbow in 90 degrees flex. 2.2# weighted spherical ball. Underhand toss and catch w/ elbow in 90 degrees flexion. 3 x 15. 2.2# weighted spherical ball. Overhand toss and catch w/ elbow in 90 degrees flexion. 3 x 15. 1 Descriptor Wrist strengthening w/ TB. Wrist ext. TB #3. 3 x 15. Elbow 90 degrees flex. Wrist flex. TB #3. 3 x 15. Elbow [address] TB #3. 3 x 15. Elbow 90 degrees flex. Wrist UD. TB #3. 3 x 15. Use of TT. - Assessment Assessment of Improvement Upgraded ther ex/wrist stabilization exercises. Overall, good session. Rec introducing dowel exercise and incorporating dynamic wrist stabilization exercises. Hannah would likely benefit from outpatient OT to address L wrist pain/discomfort, distal L UE weakness, establishment of HEP, and to support her ability to participate in meaningful activities with active incorporation of non-dominant hand. Home Exercise Program 07/07/23 = Instructed in wrist ext/flex elbow 90 degrees flex w/ forearm supported w/ TB #[address]/UD on TT w/ elbow ext and forearm pronation w/ TB #3; rec 3 x 10 every other day or 3 x per week. Instructed in passive wrist RD/UD w/ elbow ext and forearm pronation w/ use of TT w/ hold of 20-30 sec. Rec 1-2 times daily/as needed w/ passive wrist flex/ext. 06/22/23 = Instructed in L <-> R weight shift standing at wall w/ hands at sh height; 3 x 10 repetitions daily as tolerated. Rec wall push-ups w / hands positioned at sh height; 1 set of 10 repetitions daily as tolerated . Instructed in passive wrist ext and wrist flex utilizing contralateral hand w/ rec hold of 20 to 30 seconds 1 to 2 times daily and/or as needed. Discussed use of rigid volar based L wrist splint as needed ; rec w/ lifting. Trialed kinesiotape L wrist to support wrist stabilization as an alternative. - Plan Therapy Recommendations Continue with Current Program, Advance per Rehabilitation Protocol
--- NOTE | 2023-07-28 14:36 | OT.OP.TRT ---
Visit Care Team Role Provider Type Zechariah Hernandez PA-C Attending Provider Non-Staff Primary Care Provider Referring Provider Specialty: Medical Address: [address] [place] [address], [id number] Phone: Email: Occupational Therapy Treatment Note OT Outpatient Treatment Note - Adult Start: 06/23/23 08:59 Freq: Status: Active Protocol: Document 07/28/23 14:29 AMS (Rec: 07/28/23 14:35 AMS [id number]) OT Outpatient Adult Treatment Note Session Time Visit Start Time 08:30 Visit Stop Time 09:15 Total Visit Minutes 45 Visit Information Visit Number 12/18 Plan of Care Dates 06/22/23 - 08/17/23 Insurance Information Prime; 12 visits auth Setting Treatment Setting Outpatient Care Visit Type Note Type Treatment Note General Information General Information Hannah is a 23 year-old right hand dominant female referred to outpatient by PCP secondary to left wrist pain/discomfort . PMH significant for back pain, headaches, jaw pain, depression, and impaired vision (wears glasses). 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 She continues to work full-time. - Subjective Identification Type Name Observations Some concern re: verbalized awareness of 'clicking' in R wrist when executing more dynamic wrist strengthening exercises. - Objective Objective Measurements Please refer to below for progress towards meeting established OT goals: Short Term Goals 1. Hannah will present with increased ability to actively incorporate L distal UE in day -to-day tasks d/t increased strength of L wrist: 1a. 5/5 MMT L wrist ext. 1b. 5/5 MMT L wrist flex. 1c. 5/[address] 1d. 5/5 MMT L wrist UD. 2. Hannah will present with increased ability to actively incorporate L distal UE in day -to-day tasks d/t increased left wrist AROM 2a. 0-60 degrees active L wrist flex. 2b. 0-70 degrees active L wrist ext. [facility]pc Goals 1. Hannah will be modified independent with execution of distal L UE home exercise program utilizing provided written and visual instructions from therapist. 2. Hannah will present with increased ability to participate in meaningful activities in a variety of environments as evidenced by the followina. Hannah will indicate 2 or less out of 10 relative to L wrist on Pain Assessment Grid. 2b. Hannah will obtain a QuickDASH UE Outcome Measure Score of 25.00 or less. 2c. Hannah will obtain a QuickDASH UE Work Module Score of 25.00 or less. - Treatment 1 Descriptor Ultrasound 20% duty cycle. 2.0 w/cm2 dorsal L wrist to address swelling/inflammation. x 10 minutes. Skin intact pre - and post- treatment. No c/o pain/discomfort w/ treatment. Exercises 3 Descriptor ROM/Glides. Passive wrist UD/RD/flex/ext. Hold for 20 sec each stretch. Tendon glides. x 5 cycles. 2 Descriptor Wrist strengthening/Wrist stabilization. Weighted spherical ball. 3.3# weighted spherical ball. Wrist arc (RD <-> UD) w/ wrist ext w/ use of TT. Elbow in 90 degrees flex. 3 x 15. 2.2# weighted spherical ball. Underhand toss and catch w/ elbow in 90 degrees flexion. 3 x 15. 2.2# weighted spherical ball. Overhand toss and catch w/ elbow in 90 degrees flexion. 3 x 15. 1 Descriptor Wrist strengthening w/ TB. Wrist stabilization w/ TB. Wrist ext. TB #3. 3 x 15. Elbow 90 degrees flex. Wrist flex. TB #3. 3 x 15. Elbow [address] TB #3. 3 x 15. Elbow 90 degrees flex. Wrist UD. TB #3. 3 x 15. Use of TT. Sh abd w/ TB positioned distal to wrist. Use of TT to support UE. TB #3. 3 x 15. - Assessment Assessment of Improvement Report of awareness of clicking in R wrist post- execution of weighted spherical ball resistance exercises. Thus, gentle manual to R wrist followed by ice massage x 7 minutes to dorsum ulnar surface of wrist. Skin intact pre- and post- treatment. No c/o temperature of ice cup massage; may be an option for home use for management of swelling. Overall, good session. Rec introducing dowel exercise and incorporating dynamic wrist stabilization exercises. Hannah would likely benefit from outpatient OT to address L wrist pain/discomfort, distal L UE weakness, establishment of HEP, and to support her ability to participate in meaningful activities with active incorporation of non-dominant hand. Home Exercise Program 07/07/23 = Instructed in wrist ext/flex elbow 90 degrees flex w/ forearm supported w/ TB #[address]/UD on TT w/ elbow ext and forearm pronation w/ TB #3; rec 3 x 10 every other day or 3 x per week. Instructed in passive wrist RD/UD w/ elbow ext and forearm pronation w/ use of TT w/ hold of 20-30 sec. Rec 1-2 times daily/as needed w/ passive wrist flex/ext. 06/22/23 = Instructed in L <-> R weight shift standing at wall w/ hands at sh height; 3 x 10 repetitions daily as tolerated. Rec wall push-ups w / hands positioned at sh height; 1 set of 10 repetitions daily as tolerated . Instructed in passive wrist ext and wrist flex utilizing contralateral hand w/ rec hold of 20 to 30 seconds 1 to 2 times daily and/or as needed. Discussed use of rigid volar based L wrist splint as needed ; rec w/ lifting. Trialed kinesiotape L wrist to support wrist stabilization as an alternative. - Plan Therapy Recommendations Continue with Current Program, Advance per Rehabilitation Protocol
--- NOTE | 2023-07-31 13:12 | OT.OP.TRT ---
Visit Care Team Role Provider Type Zechariah Hernandez PA-C Attending Provider Non-Staff Primary Care Provider Referring Provider Specialty: Medical Address: [address] [place] [address], [id number] Phone: Email: Occupational Therapy Treatment Note OT Outpatient Treatment Note - Adult Start: 06/23/23 08:59 Freq: Status: Active Protocol: Document 07/31/23 13:06 AMS (Rec: 07/31/23 13:12 [facility] [id number]) OT Outpatient Adult Treatment Note Session Time Visit Start Time 12:15 Visit Stop Time 13:00 Total Visit Minutes 45 Visit Information Visit Number 01/18 Plan of Care Dates 06/22/23 - 08/17/23 Insurance Information Prime; 12 visits auth Setting Treatment Setting Outpatient Care Visit Type Note Type Treatment Note General Information General Information Hannah is a 23 year-old right hand dominant female referred to outpatient by PCP secondary to left wrist pain/discomfort . PMH significant for back pain, headaches, jaw pain, depression, and impaired vision (wears glasses). 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 She continues to work full-time. - Subjective Identification Type Name Observations (+) report of executing TB wrist strengthening exercises in the home; report of concern re: swelling of ulnar surface of L wrist. - Objective Objective Measurements Please refer to below for progress towards meeting established OT goals: Short Term Goals 1. Hannha will present with increased ability to actively incorporate L distal UE in day -to-day tasks d/t increased strength of L wrist: 1a. 5/5 MMT L wrist ext. 1b. 5/5 MMT L wrist flex. 1c. 5/[address] 1d. 5/5 MMT L wrist UD. 2. Hannah will present with increased ability to actively incorporate L distal UE in day -to-day tasks d/t increased left wrist AROM 2a. 0-60 degrees active L wrist flex. 2b. 0-70 degrees active L wrist ext. Retirement Goals 1. Hannah will be modified independent with execution of distal L UE home exercise program utilizing provided written and visual instructions from therapist. 2. Hannah will present with increased ability to participate in meaningful activities in a variety of environments as evidenced by the followina. Hannah will indicate 2 or less out of 10 relative to L wrist on Pain Assessment Grid. 2b. Hannah will obtain a QuickDASH UE Outcome Measure Score of 25.00 or less. 2c. Hannah will obtain a QuickDASH UE Work Module Score of 25.00 or less. - Treatment 2 Descriptor Manual. Wrist distraction. Passive wrist flex/ext/RD/UD. 1 Descriptor Ultrasound 20% duty cycle. 2.0 w/cm2 dorsal L wrist to address swelling/inflammation. x 7 min 30 sec. Skin intact pre- and post- treatment. Ceased modality given reports of changes in sensation/ discomfort of wrist/hand. Exercises 3 Descriptor ROM/Glides. Passive wrist UD/RD/flex/ext. Hold for 20 sec each stretch. Tendon glides. x 5 cycles. 2 Descriptor Wrist strengthening/Wrist stabilization. Weighted spherical ball. 2.2# weighted spherical ball. Wrist arc (RD <-> UD) w/ wrist ext w/ use of TT. Elbow in 90 degrees flex. 3 x 15. 2.2# weighted spherical ball. Underhand toss and catch w/ elbow in 90 degrees flexion. 3 x 15. 2.2# weighted spherical ball. Overhand toss and catch w/ elbow in 90 degrees flexion. 3 x 15. 1 Descriptor Wrist strengthening w/ TB. Wrist stabilization w/ TB. Wrist ext. TB #3. 3 x 15. Elbow 90 degrees flex. Wrist flex. TB #3. 3 x 15. Elbow [address] TB #3. 3 x 15. Elbow 90 degrees flex. Wrist UD. TB #3. 3 x 15. Use of TT. Sh abd w/ TB positioned distal to wrist. Use of TT to support UE. TB #3. 3 x 15. - Assessment Assessment of Improvement Report of (+) execution of resistance based home wrist strengthening exercises in the home. Gentle manual to L wrist followed by ice massage x 10 minutes to ulnar surface of wrist. Skin intact pre- and post- treatment. No c/o temperature of ice cup massage ; may be an option for home use for management of swelling . Overall, good session. Rec introducing dowel exercise and incorporating dynamic wrist stabilization exercises. Hannah would likely benefit from outpatient OT to address L wrist pain/discomfort, distal L UE weakness, establishment of HEP, and to support her ability to participate in meaningful activities with active incorporation of non-dominant hand. Home Exercise Program 07/07/23 = Instructed in wrist ext/flex elbow 90 degrees flex w/ forearm supported w/ TB #[address]/UD on TT w/ elbow ext and forearm pronation w/ TB #3; rec 3 x 10 every other day or 3 x per week. Instructed in passive wrist RD/UD w/ elbow ext and forearm pronation w/ use of TT w/ hold of 20-30 sec. Rec 1-2 times daily/as needed w/ passive wrist flex/ext. 06/22/23 = Instructed in L <-> R weight shift standing at wall w/ hands at sh height; 3 x 10 repetitions daily as tolerated. Rec wall push-ups w / hands positioned at sh height; 1 set of 10 repetitions daily as tolerated . Instructed in passive wrist ext and wrist flex utilizing contralateral hand w/ rec hold of 20 to 30 seconds 1 to 2 times daily and/or as needed. Discussed use of rigid volar based L wrist splint as needed ; rec w/ lifting. Trialed kinesiotape L wrist to support wrist stabilization as an alternative. - Plan Therapy Recommendations Continue with Current Program, Advance per Rehabilitation Protocol
--- NOTE | 2023-08-14 15:14 | OT.OPPOC ---
Physical, Occupational & Speech Therapy At [facility] Hannah Francis [id number] Visit Care Team Role Provider Type Zechariah Hernandez PA-C Attending Provider Non-Staff Primary Care Provider Referring Provider Address: [address] [place] [address], [id number] Phone: Occupational Therapy Plan of Care OT Outpatient Adult Evaluation Start: 06/23/23 08:59 Freq: Status: Active Protocol: Document 06/22/23 16:00 AMS (Rec: 06/23/23 09:35 AMS [id number]) General Information - Adult Visit Information Visit Number EVAL Plan of Care Dates 06/22/23 - 08/17/23 Insurance Information Prime; 12 visits auth Session Time Visit Start Time 12:15 Visit Stop Time 12:55 Total Visit Minutes 40 Setting Treatment Setting Outpatient Care Visit Type Note Type Initial Evaluation Identification Identification Confirmed Yes Identification Confirmed By Self Goals Short Term Goals Short Term Goals 1. Hannah will present with increased ability to actively incorporate L distal UE in day -to-day tasks d/t increased strength of L wrist: 1a. 5/5 MMT L wrist ext. 1b. 5/5 MMT L wrist flex. 1c. 5/[address] 1d. 5/5 MMT L wrist UD. 2. Hannah will present with increased ability to actively incorporate L distal UE in day -to-day tasks d/t increased left wrist AROM 2a. 0-60 degrees active L wrist flex. 2b. 0-70 degrees active L wrist ext. Dinkey Driver Goals Group Home Goals 1. Hannah will be modified independent with execution of distal L UE home exercise program utilizing provided written and visual instructions from therapist. 2. Hannah will present with increased ability to participate in meaningful activities in a variety of environments as evidenced by the followina. Hannah will indicate 2 or less out of 10 relative to L wrist on Pain Assessment Grid. 2b. Hannah will obtain a QuickDASH UE Outcome Measure Score of 25.00 or less. 2c. Hannah will obtain a QuickDASH UE Work Module Score of 25.00 or less. Assessment/Plan Assessment Treatment Assessment Hannah is a 23 year-old right hand dominant female referred to outpatient by PCP secondary to left wrist pain/discomfort . PMH significant for back pain, headaches, jaw pain, depression, and impaired vision (wears glasses). 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 She continues to work full-time. She indicated 7 out of 10 on pain scale relative to volar L wrist and 8-9 out of 10 on pain scale relative to dorsal L wrist/ distal -> 2-5 MCPJs; see EMR for scanned Pain Assessment Grid. Hannah reported that pain has presented on and off for the last 2 years; however, pain/discomfort has been more severe in the last 6 months w / reported pain/discomfort pushing off of surfaces/ maintaining grasp for any extended period of time. Intermittent icing of L wrist for pain management; (-) currently using L wrist brace w/ reported increased reliance on R UE. Denial of h/o treatment for L wrist. QuickDASH UE Outcome Measure Score = 54.55; QuickDASH UE Work Module Score = 62.50; Hannah denied playing a sport or an instrument. She reports that she does do weight lifting (but has stopped since having injury). Denial of numbness and/or tingling. 0-60 degrees active R wrist flex vs 0-50 degrees active L wrist flex; 0-75 degrees active R wrist ext vs 0-62 degrees active L wrist ext; 0-15 degrees active R wrist RD vs 0 -15 degrees active L wrist RD; 0-40 degrees active R wrist UD vs 0-35 degrees active L wrist UD. 5/5 MMT R wrist flex vs 3+/5 MMT L wrist flex; 5/5 MMT R wrist ext vs 4/5 MMT L wrist ext; 5/[address] vs 3+/[address]; 5/5 MMT R wrist UD vs 3+/5 MMT L wrist UD. R coyote hunter w/ elbow 90 degrees flexion dynamometer II = 36.0# of force vs L coyote hunter w/ elbow 90 degrees flexion dynamometer II 28.0# of force; R coyote hunter w/ elbow ext dynamometer II = 43.0# of force vs L coyote hunter w/ elbow ext dynamometer II = 23.0# of force. R lateral pinch 12.0# of force vs 7.0# of force L lateral pinch; 11.0# of force R tip pinch vs 5.0# of force L tip pinch; 17.0# of force R 3 -jaw pinch vs 8.0# of force L 3-jaw pinch. Hannah would likely benefit from outpatient OT to address L wrist pain/ discomfort, distal L UE weakness, establishment of HEP , and to support her ability to participate in meaningful activities with active incorporation of non-dominant hand. Home Exercise Program 06/22/23 = Instructed in L <-> R weight shift standing at wall w/ hands at sh height; 3 x 10 repetitions daily as tolerated. Rec wall push-ups w / hands positioned at sh height; 1 set of 10 repetitions daily as tolerated . Instructed in passive wrist ext and wrist flex utilizing contralateral hand w/ rec hold of 20 to 30 seconds 1 to 2 times daily and/or as needed. Discussed use of rigid volar based L wrist splint as needed ; rec w/ lifting. Trialed kinesiotape L wrist to support wrist stabilization as an alternative. Plan Length of treatment (weeks) 8 Plan of Care Start Date 06/22/23 Plan of Care End Date 08/17/23 Treatment Frequency Once a Week Therapeutic Contents Active Range of Motion, Adaptive Equipment Education, Client Education,Functional Activities,Home Exercise Program,Joint Protection, Manual Therapy,Education, Neurodevelopment Treatment, Neuromuscular Re-Education, Self-Care,Stretching/ Flexibility Activities, Therapeutic Activities, Therapeutic Exercises, Modalities Modalities As Needed,As Prescribed Additional Types of Modalities Heat/Ice/Contrast Baths/ Paraffin/Ultrasound Functional Wrist/Hand Scan Hand Side Sensory Assessment Sensory Profile2 OT Outpatient Treatment Note - Adult Start: 06/23/23 08:59 Freq: Status: Active Protocol: Document 08/14/23 14:59 [facility] (Rec: 08/14/23 15:14 [facility] [id number]) OT Outpatient Adult Treatment Note Session Time Visit Start Time 12:15 Visit Stop Time 13:00 Total Visit Minutes 45 Visit Information Visit Number 02/17 Plan of Care Dates 08/14/23 - 10/02/23 Insurance Information Prime; 12 visits auth Setting Treatment Setting Outpatient Care Visit Type Note Type Progress Note General Information General Information Hannah is a 23 year-old right hand dominant female referred to outpatient by PCP secondary to left wrist pain/discomfort . PMH significant for back pain, headaches, jaw pain, depression, and impaired vision (wears glasses). 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 She continues to work full-time. - Subjective Identification Type Name Observations Concern re: distal L UE swelling. Patient/Caregiver Compliance with Home Good Exercise Program - Objective Objective Measurements Please refer to below for progress towards meeting established OT goals: Short Term Goals 1. Hannah will present with increased ability to actively incorporate L distal UE in day -to-day tasks d/t increased strength of L wrist: 1a. 5/5 MMT L wrist ext. 1b. 5/5 MMT L wrist flex. 1c. 5/[address] 1d. 5/5 MMT L wrist UD. 2. Hannah will present with increased ability to actively incorporate L distal UE in day -to-day tasks d/t increased left wrist AROM 2a. 0-60 degrees active L wrist flex. 2b. 0-70 degrees active L wrist ext. Group Home Goals 1. Hannah will be modified independent with execution of distal L UE home exercise program utilizing provided written and visual instructions from therapist. 2. Hannah will present with increased ability to participate in meaningful activities in a variety of environments as evidenced by the followina. Hannah will indicate 2 or less out of 10 relative to L wrist on Pain Assessment Grid. 08/14/23 = 50% met; 4/10 vs initial 7-9/10 on Pain Assessment Grid scale 2b. Hannah will obtain a QuickDASH UE Outcome Measure Score of 25.00 or less. = 25% met; 45.45 vs initial 54.55 GOALS MET Hannah will obtain a QuickDASH UE Work Module Score of 25.00 or less. *MET 08/14/23 = Score 25.00 vs initial 62.50 - Treatment 2 Descriptor Manual. Wrist distraction. Passive wrist flex/ext/RD/UD. 1 Descriptor Ultrasound 20% duty cycle. 2.0 w/cm2 dorsal L wrist to address swelling/inflammation. x 10 minutes. Skin intact pre - and post- treatment. Exercises 3 Descriptor ROM/Glides. Passive wrist UD/RD/flex/ext. Hold for 20 sec each stretch. Tendon glides. x 5 cycles. 2 Descriptor Wrist strengthening/Wrist stabilization. Weighted spherical ball. 2.2# weighted spherical ball. Wrist arc (RD <-> UD) w/ wrist ext w/ use of TT. Elbow in 90 degrees flex. 3 x 15. 2.2# weighted spherical ball. Underhand toss and catch w/ elbow in 90 degrees flexion. 3 x 15. 2.2# weighted spherical ball. Overhand toss and catch w/ elbow in 90 degrees flexion. 3 x 15. 1 Descriptor Wrist strengthening w/ TB. Wrist stabilization w/ TB. Wrist ext. TB #3. 3 x 15. Elbow 90 degrees flex. Wrist flex. TB #3. 3 x 15. Elbow [address] TB #3. 3 x 15. Elbow 90 degrees flex. Wrist UD. TB #3. 3 x 15. Use of TT. Wrist stabilization. Elbows 90 degrees flex. Brought TB away from midline/center. 3 x 15. TB #3 N/A 08/14/23 Sh abd w/ TB positioned distal to wrist. Use of TT to support UE. TB #3. 3 x 15. - Assessment Assessment of Improvement Hannah has made some progress with outpatient OT since time of initial evaluation; she is presenting with decreased distal L UE pain/discomfort, increased ability to complete functional and work based tasks, and increasing functional independence w/ execution of home exercise program. Despite these gains, Hannah continues to be limited by wrist range of motion, strength, and changes in sensation. Hannah would likely continue to benefit from outpatient OT to address L wrist pain/discomfort, distal L UE weakness, advancement HEP , and to support her ability to participate in meaningful activities with active incorporation of non-dominant hand. Hannah may benefit from referral to UE customer resource specialist for further diagnostic testing/imaging. Rec focusing on range of motion given limited progress w/ wrist flex/ext despite provision of/instruction in passive wrist stretches. Home Exercise Program 07/07/23 = Instructed in wrist ext/flex elbow 90 degrees flex w/ forearm supported w/ TB #[address]/UD on TT w/ elbow ext and forearm pronation w/ TB #3; rec 3 x 10 every other day or 3 x per week. Instructed in passive wrist RD/UD w/ elbow ext and forearm pronation w/ use of TT w/ hold of 20-30 sec. Rec 1-2 times daily/as needed w/ passive wrist flex/ext. 06/22/23 = Instructed in L <-> R weight shift standing at wall w/ hands at sh height; 3 x 10 repetitions daily as tolerated. Rec wall push-ups w / hands positioned at sh height; 1 set of 10 repetitions daily as tolerated . Instructed in passive wrist ext and wrist flex utilizing contralateral hand w/ rec hold of 20 to 30 seconds 1 to 2 times daily and/or as needed. Discussed use of rigid volar based L wrist splint as needed ; rec w/ lifting. Trialed kinesiotape L wrist to support wrist stabilization as an alternative. - Plan Therapy Recommendations Continue with Current Program, Advance per Rehabilitation Protocol Comment 7 weeks Frequency of Treatment Once a Week Therapeutic Contents Active Range of Motion, Adaptive Equipment Education, Client Education,Functional Activities,Home Exercise Program,Joint Protection, Manual Therapy,Education, Neurodevelopment Treatment, Neuromuscular Re-Education, Self-Care,Stretching/ Flexibility Activities, Therapeutic Activities, Therapeutic Exercises, Modalities Modalities As Needed,As Prescribed Additional Types of Modalities Heat/Ice/Contrast Baths/ Paraffin bath/Ultrasound Electronically Signed by: Linda William OT 08/14/23 3106 If you are in agreement with this Plan of Care, please return a signed and dated copy. I have reviewed this Plan of Care and certify that the skilled therapy services above are required to meet the patient?s needs. Physician Signature Date Printed Name and Credentials Clinical Instructor Signature Printed Name and Credentials
--- NOTE | 2023-09-04 14:12 | OT.OP.DC ---
Visit Care Team Role Provider Type Zechariah Hernandez PA-C Attending Provider Non-Staff Primary Care Provider Referring Provider Address: [address] [place] [address], [phone] Phone: Email: OT Outpatient OT Outpatient Adult Evaluation Start: 06/23/23 08:59 Freq: Status: Active Protocol: Document 06/22/23 16:00 AMS (Rec: 06/23/23 09:35 AMS [id number]) General Information - Adult Visit Information Visit Number EVAL Plan of Care Dates 06/22/23 - 08/17/23 Insurance Information Prime; 12 visits auth Session Time Visit Start Time 12:15 Visit Stop Time 12:55 Total Visit Minutes 40 Setting Treatment Setting Outpatient Care Visit Type Note Type Initial Evaluation Identification Identification Confirmed Yes Identification Confirmed By Self Goals Short Term Goals Short Term Goals 1. Hannah will present with increased ability to actively incorporate L distal UE in day -to-day tasks d/t increased strength of L wrist: 1a. 5/5 MMT L wrist ext. 1b. 5/5 MMT L wrist flex. 1c. 5/[address] 1d. 5/5 MMT L wrist UD. 2. Hannah will present with increased ability to actively incorporate L distal UE in day -to-day tasks d/t increased left wrist AROM 2a. 0-60 degrees active L wrist flex. 2b. 0-70 degrees active L wrist ext. [facility] Goals Pad Tufter Goals 1. Hannah will be modified independent with execution of distal L UE home exercise program utilizing provided written and visual instructions from therapist. 2. Hannah will present with increased ability to participate in meaningful activities in a variety of environments as evidenced by the followina. Hannah will indicate 2 or less out of 10 relative to L wrist on Pain Assessment Grid. 2b. Hannah will obtain a QuickDASH UE Outcome Measure Score of 25.00 or less. 2c. Hannah will obtain a QuickDASH UE Work Module Score of 25.00 or less. Assessment/Plan Assessment Treatment Assessment Hannah is a 23 year-old right hand dominant female referred to outpatient by PCP secondary to left wrist pain/discomfort . PMH significant for back pain, headaches, jaw pain, depression, and impaired vision (wears glasses). 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 She continues to work full-time. She indicated 7 out of 10 on pain scale relative to volar L wrist and 8-9 out of 10 on pain scale relative to dorsal L wrist/ distal -> 2-5 MCPJs; see EMR for scanned Pain Assessment Grid. Hannah reported that pain has presented on and off for the last 2 years; however, pain/discomfort has been more severe in the last 6 months w / reported pain/discomfort pushing off of surfaces/ maintaining grasp for any extended period of time. Intermittent icing of L wrist for pain management; (-) currently using L wrist brace w/ reported increased reliance on R UE. Denial of h/o treatment for L wrist. QuickDASH UE Outcome Measure Score = 54.55; QuickDASH UE Work Module Score = 62.50; Hannah denied playing a sport or an instrument. She reports that she does do weight lifting (but has stopped since having injury). Denial of numbness and/or tingling. 0-60 degrees active R wrist flex vs 0-50 degrees active L wrist flex; 0-75 degrees active R wrist ext vs 0-62 degrees active L wrist ext; 0-15 degrees active R wrist RD vs 0 -15 degrees active L wrist RD; 0-40 degrees active R wrist UD vs 0-35 degrees active L wrist UD. 5/5 MMT R wrist flex vs 3+/5 MMT L wrist flex; 5/5 MMT R wrist ext vs 4/5 MMT L wrist ext; 5/[address] vs 3+/[address]; 5/5 MMT R wrist UD vs 3+/5 MMT L wrist UD. R credit specialist w/ elbow 90 degrees flexion dynamometer II = 36.0# of force vs L credit specialist w/ elbow 90 degrees flexion dynamometer II 28.0# of force; R credit specialist w/ elbow ext dynamometer II = 43.0# of force vs L credit specialist w/ elbow ext dynamometer II = 23.0# of force. R lateral pinch 12.0# of force vs 7.0# of force L lateral pinch; 11.0# of force R tip pinch vs 5.0# of force L tip pinch; 17.0# of force R 3 -jaw pinch vs 8.0# of force L 3-jaw pinch. Hannah would likely benefit from outpatient OT to address L wrist pain/ discomfort, distal L UE weakness, establishment of HEP , and to support her ability to participate in meaningful activities with active incorporation of non-dominant hand. Home Exercise Program 06/22/23 = Instructed in L <-> R weight shift standing at wall w/ hands at sh height; 3 x 10 repetitions daily as tolerated. Rec wall push-ups w / hands positioned at sh height; 1 set of 10 repetitions daily as tolerated . Instructed in passive wrist ext and wrist flex utilizing contralateral hand w/ rec hold of 20 to 30 seconds 1 to 2 times daily and/or as needed. Discussed use of rigid volar based L wrist splint as needed ; rec w/ lifting. Trialed kinesiotape L wrist to support wrist stabilization as an alternative. Plan Length of treatment (weeks) 8 Plan of Care Start Date 06/22/23 Plan of Care End Date 08/17/23 Treatment Frequency Once a Week Therapeutic Contents Active Range of Motion, Adaptive Equipment Education, Client Education,Functional Activities,Home Exercise Program,Joint Protection, Manual Therapy,Education, Neurodevelopment Treatment, Neuromuscular Re-Education, Self-Care,Stretching/ Flexibility Activities, Therapeutic Activities, Therapeutic Exercises, Modalities Modalities As Needed,As Prescribed Additional Types of Modalities Heat/Ice/Contrast Baths/ Paraffin/Ultrasound Functional Wrist/Hand Scan Hand Side Sensory Assessment Sensory Profile2 OT Outpatient Treatment Note - Adult Start: 06/23/23 08:59 Freq: Status: Active Protocol: Document 09/04/23 14:01 [facility] (Rec: 09/04/23 14:11 [facility] [id number]) OT Outpatient Adult Treatment Note Session Time Visit Start Time 13:30 Visit Stop Time 13:45 Total Visit Minutes 15 Visit Information Visit Number 6 Plan of Care Dates 08/14/23 - 10/02/23 Insurance Information Prime; 12 visits auth Setting Treatment Setting Outpatient Care Visit Type Note Type Treatment Note General Information General Information Hannah is a 23 year-old right hand dominant female referred to outpatient by PCP secondary to left wrist pain/discomfort . PMH significant for back pain, headaches, jaw pain, depression, and impaired vision (wears glasses). 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 She continues to work full-time. - Subjective Identification Type Name Observations Concerns regarding poor tolerance for functional weight bearing. Patient/Caregiver Compliance with Home Good Exercise Program - Objective Objective Measurements Please refer to below for progress towards meeting established OT goals: 09/04/23 = circumference of L wrist 18.5 cm Short Term Goals ALL GOALS D/C 09/04/23 1. Hannah will present with increased ability to actively incorporate L distal UE in day -to-day tasks d/t increased strength of L wrist: 1a. 5/5 MMT L wrist ext. 1b. 5/5 MMT L wrist flex. 1c. 5/[address] 1d. 5/5 MMT L wrist UD. 2. Hannah will present with increased ability to actively incorporate L distal UE in day -to-day tasks d/t increased left wrist AROM 2a. 0-60 degrees active L wrist flex. 09/04/23 = 0-55 degrees vs initial 0-50 degrees 2b. 0-70 degrees active L wrist ext. 09/04/23 = 0-66 degrees vs initial 0-62 degrees [facility] Goals ALL GOALS D/C 09/04/23 1. Hannah will be modified independent with execution of distal L UE home exercise program utilizing provided written and visual instructions from therapist. 2. Hannah will present with increased ability to participate in meaningful activities in a variety of environments as evidenced by the followina. Hannah will indicate 2 or less out of 10 relative to L wrist on Pain Assessment Grid. 08/14/23 = 50% met; 4/10 vs initial 7-9/10 on Pain Assessment Grid scale 2b. Hannah will obtain a QuickDASH UE Outcome Measure Score of 25.00 or less. = 25% met; 45.45 vs initial 54.55 GOALS MET Hannah will obtain a QuickDASH UE Work Module Score of 25.00 or less. *MET 08/14/23 = Score 25.00 vs initial 62.50 - Treatment 2 Descriptor Manual. Wrist distraction. Passive wrist flex/ext/RD/UD. 1 Descriptor Ultrasound 20% duty cycle. 2.0 w/cm2 dorsal L wrist to address swelling/inflammation. x 10 minutes. Skin intact pre - and post- treatment. Exercises 3 Descriptor ROM/Glides. Passive wrist UD/RD/flex/ext. Hold for 20 sec each stretch. Tendon glides. x 5 cycles. 1 Descriptor Wrist strengthening w/ TB. Wrist stabilization w/ TB. Wrist ext. TB #3. 3 x 15. Elbow 90 degrees flex. Wrist flex. TB #3. 3 x 15. Elbow [address] TB #3. 3 x 15. Elbow 90 degrees flex. Wrist UD. TB #3. 3 x 15. Use of TT. Wrist stabilization. Elbows 90 degrees flex. Brought TB away from midline/center. 3 x 15. TB #3 N/A 08/14/23 Sh abd w/ TB positioned distal to wrist. Use of TT to support UE. TB #3. 3 x 15. - Assessment Assessment of Improvement Although Hannah has made some progress with outpatient OT since time of initial evaluation (including, decreased distal L UE pain/ discomfort, improved pain-free active wrist flexion/ extension, increased ability to complete functional and work based tasks, and increased functional independence w/ execution of home exercise program), Hannah continues to be limited by wrist range of motion, strength, changes in sensation , as well as concerns w/ distal edema/swelling. Thus, it is recommended that Hannah returns to her PCP to explore additional less conservative options for treatment/obtain a referral to UE customer resolution specialist. Home Exercise Program 07/07/23 = Instructed in wrist ext/flex elbow 90 degrees flex w/ forearm supported w/ TB #[address]/UD on TT w/ elbow ext and forearm pronation w/ TB #3; rec 3 x 10 every other day or 3 x per week. Instructed in passive wrist RD/UD w/ elbow ext and forearm pronation w/ use of TT w/ hold of 20-30 sec. Rec 1-2 times daily/as needed w/ passive wrist flex/ext. 06/22/23 = Instructed in L <-> R weight shift standing at wall w/ hands at sh height; 3 x 10 repetitions daily as tolerated. Rec wall push-ups w / hands positioned at sh height; 1 set of 10 repetitions daily as tolerated . Instructed in passive wrist ext and wrist flex utilizing contralateral hand w/ rec hold of 20 to 30 seconds 1 to 2 times daily and/or as needed. Discussed use of rigid volar based L wrist splint as needed ; rec w/ lifting. Trialed kinesiotape L wrist to support wrist stabilization as an alternative. - Plan Therapy Recommendations Discharge from Occupational Therapy
== END 2023-09-06 13:27 | disposition home or self-care (01) ==
LOC: OT 13:30
PROVIDERS: Absent Provider Physician Assistant; PCP Physician Assistant; Referring Provider Physician Assistant; Visit Provider Physician Assistant
DX: M25.532 Pain in left wrist (principal)
CPT/HCPCS: 97035; 97110; 97140; 97165